=== PATIENT | female | born 1940 | race Caucasian/White ===

== ENCOUNTER → 2018-02-09 10:25 | Outpatient (CLI) | payer MEDICARE, OTHER, SELFPAY ==
--- NOTE | 2018-02-09 10:35 | RAD_ITS ---
STUDY: X-RAY - LUMBAR SPINE REASON FOR EXAM: Female, 77 years old. Back pain. TECHNIQUE: 5 view(s) of the lumbar spine were obtained. COMPARISON: None FINDINGS: Normal lumbar lordosis. There is no substantial scoliosis. There is a normal alignment of the vertebrae. Normal vertebral bodies and endplates. Mild disc space narrowing L1-L2 and L2-3. The soft tissue structures are unremarkable. Surgical clips right upper quadrant. RAD/L/S Spine Min 4 Views IMPRESSION: Minimal degenerative changes of the lumbar spine. Electronically Signed: Salvador Hernandez MD at 5:29 EDT , Service support ,
[2018-02-09 12:16] LABS: Absolute Lymphocyte Count 1.97 X10^3/ul (0.83-4.51); Absolute Neutrophil Count 6.6 X10^3/uL (2.0-7.7); Basophil# 0.04 X10^3/uL; Basophil% 0.4 % (0-1); Eosinophil# 0.11 X10^3/uL; Eosinophils% 1.2 % (0-5); Hematocrit 45.6 % (37-47); Hemoglobin 15.1 g/dl (12.0-15.0); Lymphocyte # 1.97 X10^3/ul (4.0); Lymphocyte % 20.8 % (19-41); Mean Corp Hgb Conc 33.1 g/gl (32-36); Mean Corpuscular Hgb 28.7 pg (27.0-32.0); Mean Corpuscular Volume 86.7 fL (81-99); Mean Platelet Vol. 10.4 fl (6.2-12.0); Monocyte# 0.73 X10^3/uL; Monocyte% 7.7 % (0-10); Neutrophil # 6.63 X10^3/uL (2.7-7.7); Neutrophil % 69.8 % (47-70); Platelet Count 208 K/mm3 (150-450); RBC Distribution Width CV 13.3 % (11.6-14.6); RBC Distribution Width SD 41.2 fl (35.1-43.9); Red Blood Count 5.26 M/mm3 (4.2-5.4); White Blood Count 9.5 K/mm3 (4.4-11.0)
[2018-02-09 12:17] LABS: POSITIVE COUNT NO; POSITIVE DIFFERENTIAL NO; POSITIVE MORPHOLOGY NO
[2018-02-09 12:46] LABS: ALB/GLOB Ratio 0.9 RATIO (0.9-2.4); AST(SGOT) 12 U/L (15-37); Alanine Aminotransfer ALT/SGPT 17 U/L (13-56); Albumin, Serum 3.6 g/dL (3.2-5.0); Alkaline Phosphatase 88 U/L (45-117); Anion Gap 10 (5-15); BUN 25 mg/dL (7-18); BUN/Creat Ratio 27.2 RATIO (10-20); Calcium,Total 8.7 mg/dL (8.5-10.1); Chloride 106 mmol/L (98-107); Creatinine, Serum 0.92 mg/dL (0.55-1.02); EST Glomerular Filtration Rate 63 mL/min (>60); Est Glom Filt Rate - Afr Amer 76 mL/min (>60); Globulin 3.8 g/dL (2.2-4.2); Glucose 84 mg/dL (74-106); Potassium 3.7 mmol/L (3.5-5.1); Protein, Total 7.4 g/dL (6.4-8.2); Sodium Level 142 mmol/L (136-145)
== END ==
PROVIDERS: Family Provider Internal Medicine; PCP Internal Medicine; Visit Provider Internal Medicine
DX: R03.0 Elevated blood-pressure reading, without diagnosis of hypertension (principal); M79.7 Fibromyalgia; M54.9 Dorsalgia, unspecified; G89.29 Other chronic pain
CPT/HCPCS: 36415; 72110; 80053; 85025

== ENCOUNTER 2018-02-23 08:31 | Emergency (ER) | payer MEDICARE, OTHER, SELFPAY ==
[2018-02-23 08:32] VITALS: BP 163/78; PULSE 74; RESP 16; TEMP 36.8; O2SAT 95; BMI 24.5
--- NOTE | 2018-02-23 09:06 | ED.DCSUM_ITS ---
- ER Visit Summary Date of Service: 02/23/18 Chief Complaint: Abdominal pain History of Present Illness: The patient is a 77 F who is had 1 week of abdominal pain. She describes cramping diffusely as well as some pains in her suprapubic area. She has had nausea without vomiting. Denies any urinary symptoms. She states she started out and but then has progressed to diarrhea. She thinks she may have had some blood with a bowel movement today. Of note, she did start a new blood pressure medication last week. Physical Examination: Vital signs reviewed. HEENT exam unremarkable. Heart is regular rate and rhythm without murmurs. Lungs are clear to auscultation. Abdomen is soft with tenderness in the lower abdomen area. Extremities reveal no edema. Skin exam normal. Neurologic exam normal. Test Results: Laboratory studies are unremarkable except for a white blood cell count of 14.4. Urinalysis shows trace blood. Acute abdominal series interpreted by myself reveals nonspecific bowel gas pattern Emergency Department Course and Treatment: Patient was given morphine and Zofran. She feels much better. Her pain is likely due to some constipation. I will give her MiraLAX that she can take at home. She will follow-up with her PCP Treatment Plan: [] Disposition: Discharge Impression: Constipation This note was generated with [employer] dictation software. It may contain incorrect words, spelling, and punctuation that were not noted in review of the chart prior to signing ED Disposition - Plan for ED Patient: Chief Complaint: Abd Pain Referrals: Codi Dias MD [Primary Care Provider] -
[2018-02-23 09:25] LABS: Absolute Lymphocyte Count 1.77 X10^3/ul (0.83-4.51); Absolute Neutrophil Count 11.6 X10^3/uL (2.0-7.7); Basophil# 0.01 X10^3/uL; Basophil% 0.1 % (0-1); Eosinophil# 0.09 X10^3/uL; Eosinophils% 0.6 % (0-5); Hematocrit 41.5 % (37-47); Hemoglobin 13.8 g/dl (12.0-15.0); Lymphocyte # 1.77 X10^3/ul (4.0); Lymphocyte % 12.3 % (19-41); Mean Corp Hgb Conc 33.3 g/gl (32-36); Mean Corpuscular Hgb 28.9 pg (27.0-32.0); Mean Platelet Vol. 9.4 fl (6.2-12.0); Monocyte# 0.83 X10^3/uL; Monocyte% 5.8 % (0-10); Neutrophil # 11.64 X10^3/uL (2.7-7.7); Neutrophil % 81.1 % (47-70); Platelet Count 154 K/mm3 (150-450); RBC Distribution Width CV 13.3 % (11.6-14.6); RBC Distribution Width SD 42.5 fl (35.1-43.9); Red Blood Count 4.77 M/mm3 (4.2-5.4); White Blood Count 14.4 K/mm3 (4.4-11.0)
[2018-02-23 09:26] LABS: POSITIVE COUNT NO; POSITIVE DIFFERENTIAL NO; POSITIVE MORPHOLOGY NO
[2018-02-23 09:42] LABS: ALB/GLOB Ratio 0.7 RATIO (0.9-2.4); AST(SGOT) 8 U/L (15-37); Alanine Aminotransfer ALT/SGPT 13 U/L (13-56); Albumin, Serum 2.8 g/dL (3.2-5.0); Alkaline Phosphatase 80 U/L (45-117); Anion Gap 6 (5-15); BUN 19 mg/dL (7-18); BUN/Creat Ratio 24.5 RATIO (10-20); Calcium,Total 8.5 mg/dL (8.5-10.1); Chloride 105 mmol/L (98-107); Creatinine, Serum 0.78 mg/dL (0.55-1.02); EST Glomerular Filtration Rate 76 mL/min (>60); Est Glom Filt Rate - Afr Amer 92 mL/min (>60); Globulin 3.8 g/dL (2.2-4.2); Glucose 103 mg/dL (74-106); Lipase 90 U/L (73-393); Potassium 3.7 mmol/L (3.5-5.1); Protein, Total 6.6 g/dL (6.4-8.2); Sodium Level 139 mmol/L (136-145)
[2018-02-23 09:46] LABS: Mucous, Urine 0 SEEN /hpf (<or=2+); Squamous Epithelial Cells - UA 0 SEEN /hpf (5-10); White Blood Cells 0 SEEN /hpf (0-5)
[2018-02-23 09:48] LABS: Color, Urine Yellow (Yellow); Glucose, Dipstick Normal (Normal); Ketone-Dipstick Negative (Negative); Leukocyte Esterase-Dipstick Negative /ul (Negative); Nitrite-Dipstick Negative (Negative); Occult Blood-Urine 25 /ul (Negative); Protein-Dipstick Negative (Negative); Urine Bilirubin Dipstick Negative (Negative); Urine Clarity Clear (Clear); Urine Urobilinogen Normal (Normal)
[2018-02-23 09:53] LABS: Bacteria RARE /hpf (None Seen); Red Blood Cells-Urine 0-5 SEEN /hpf (0-5)
[2018-02-23] MEDS: Morphine 4 MG/ML Syringe 2 MG IV (09:54)
[2018-02-23] MEDS: Ondansetron 4 MG/2 ML Vial IV (09:55)
--- NOTE | 2018-02-23 10:20 | RAD_ITS ---
STUDY: X-RAY - ACUTE ABDOMINAL SERIES REASON FOR EXAM: Female, 77 years old. PT HAS ONGOING ABD PAIN ALTERNATING BETWEEN CONSTIPATION AND DIARRHEA OVER LAST WEEK OR SO. BLOOD IN STOOL. PAIN IN LOWER ABD AREA. TECHNIQUE: Single view of the chest. Supine, erect, and decubitus view(s) of the abdomen were obtained. COMPARISON: None. FINDINGS: The lungs are clear and expanded. Normal size heart. Normal mediastinum and ashia. Normal visualized pulmonary arteries. There is atherosclerotic tortuosity of the aortic arch and descending thoracic aorta. There is a non-specific bowel gas pattern. The soft tissue structures of the abdomen and pelvis are unremarkable. There are diffuse degenerative changes of the visualized lumbar spine. RAD/Acute Abdomen Inc Chest IMPRESSION: No acute abnormality of the chest, abdomen, and pelvis. Electronically Signed: Raquel Yun MD at 11:27 EDT Tel , Service support ,
--- NOTE | 2018-02-23 11:22 | ED.DEP ---
ED Disposition - Plan for ED Patient: Disposition: Home or Assisted Living Chief Complaint: Abd Pain Instructions: ED Constipation Prescriptions: Polyethylene Glycol 3350 [Miralax] 17 gm PO DAILY #14 packet Referrals: Codi Dias MD [Primary Care Provider] -
[2018-02-23 12:11] VITALS: BP 148/75; PULSE 79; RESP 16; O2SAT 98
== END 2018-02-23 12:12 | disposition home or self-care (01) ==
PROVIDERS: Emergency Provider Emergency Medicine; Family Provider Internal Medicine; PCP Internal Medicine
DX: K59.00 Constipation, unspecified (principal); K58.9 Irritable bowel syndrome, unspecified; M79.7 Fibromyalgia; H91.90 Unspecified hearing loss, unspecified ear
CPT/HCPCS: 74022; 80053; 81001; 83690; 85025; 96374; 96375; 99285; J7030; A4216; J2405

== ENCOUNTER 2018-05-14 08:27 | Day surgery (SDC) | payer MEDICARE, OTHER, SELFPAY ==
[2018-05-14] VITALS (9 sets, daily range): BP systolic 129–177; BP diastolic 71–86; PULSE 58–74; RESP 16–18; TEMP 36.1–37; O2SAT 94–100; BMI 24.1
--- NOTE | 2018-05-14 11:16 | OP.PCM_ITS ---
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 She has not tolerated debridements in the office in the past due to severe vertigo and nausea, and debridement under anesthesia is offered as her impaction is quite severe. She and her daughter were eager to proceed. The risks, alternatives, potential benefits, and complications were discussed at length and any questions answered to the patient and/or caregiver's satisfaction. Witnessed informed consent was obtained in the office, and the patient and/or caregiver was agreeable to proceed. Procedure went as follows: The patient was identified in the preoperative holding brought to the operating room and was placed under general anesthesia and intubated. The operative ear had been site marked preoperatively in accordance with the office notes patient exam and history. The patient was then placed under monitored anesthesia care and the right ear prepped and draped in usual sterile fashion. There was densely packed cholesteatoma within the mastoid cavity. This was removed with a curved pick, alligator forceps, and #5 suction. No granulation tissue or purulence was noted and the tympanic membrane is intact. A similar procedure was then completed on the contralateral side with similar findings. The patient was then returned to anesthesia and was revived without complication having tolerated the procedure well. Type of Anesthesia:: MAC Anesthesiologist: Ramesh Hoffman Special Medications: none Specimen's removed: none Drains: none Estimated Blood Loss (mL): 0 mL Fluids Replaced: 700 mL Grafts/Implants Used: none - Complications none - Admit VTE Documentation VTE Present on Admission: No VTE Mechan Device Prophylaxis: SCD's VTE Pharm Prophylaxis ordered?: No
--- NOTE | 2018-05-14 11:18 | PCM.DC ---
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 (Chronic) You will use the following diet at home:: No restrictions Discharge Activity: Return to Normal Activity Call your doctor if your incision/area has: Foul Smelling Discharge Allergies/Adverse Reactions: Allergies amoxicillin Allergy (Severe, Verified 05/14/18 08:56) Itching penicillin G Allergy (Severe, Verified 05/14/18 08:56) Itching profaximin Allergy (Severe, Uncoded 04/27/18 08:59) Itching Medications to take at Discharge amlodipine 5 mg tablet 5 mg PO QDAY #90 tab 04/27/18 psyllium seed (sugar) oral powder 1 tsp PO QDAY 04/27/18 Fluticasone 0.05% [Flonase Nasal [place]] 2 spray NASAL DAILY 05/11/18 Primary Care Physician: Codi Dias MD [Primary Care Provider] - Test Results: Test results from this visit will be discussed in further detail at your follow-up appointment, if applicable. Please Follow Up With: Abdoul Wooten MD When: 2 weeks
--- NOTE | 2018-05-14 11:21 | DCINST_ITS ---
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 (Chronic) You will use the following diet at home:: No restrictions Discharge Activity: Return to Normal Activity Call your doctor if your incision/area has: Foul Smelling Discharge Allergies/Adverse Reactions: Allergies amoxicillin Allergy (Severe, Verified 05/14/18 08:56) Itching penicillin G Allergy (Severe, Verified 05/14/18 08:56) Itching profaximin Allergy (Severe, Uncoded 04/27/18 08:59) Itching Medications to take at Discharge amlodipine 5 mg tablet 5 mg PO QDAY #90 tab 04/27/18 psyllium seed (sugar) oral powder 1 tsp PO QDAY 04/27/18 Fluticasone 0.05% [Flonase Nasal [place]] 2 spray NASAL DAILY 05/11/18 Primary Care Physician: Codi Dias MD [Primary Care Provider] - Test Results: Test results from this visit will be discussed in further detail at your follow- up appointment, if applicable. Please Follow Up With: Abdoul Wooten MD When: 2 weeks
== END 2018-05-14 12:50 | disposition home or self-care (01) ==
LOC: SDC 08:28 → AC 08:29
PROVIDERS: Family Provider Internal Medicine; PCP Internal Medicine; Visit Provider Otolaryngology
PROC: (CPT 69222; principal; 2018-05-14 09:45)
DX: H95 Intraoperative and postprocedural complications and disorders of ear and mastoid process, not elsewhere classified (principal); H90.A21 Sensorineural hearing loss, unilateral, right ear, with restricted hearing on the contralateral side; I10 Essential (primary) hypertension; E07.9 Disorder of thyroid, unspecified; K21.9 Gastro-esophageal reflux disease without esophagitis; Z78.0 Asymptomatic menopausal state; Z79.899 Other long term (current) drug therapy
CPT/HCPCS: 00120; 69222; J7120

== ENCOUNTER → 2019-01-25 15:46 | Outpatient (CLI) | payer MEDICARE, OTHER, SELFPAY ==
[2018-12-21 10:43] VITALS: BMI 24.1
== END ==
LOC: LAB 15:49 → LABSPEC 15:50
PROVIDERS: Family Provider Internal Medicine; PCP Internal Medicine; Referring Provider Otolaryngology Otolaryngology/Facial Plastic Surgery; Visit Provider Otolaryngology Otolaryngology/Facial Plastic Surgery
DX: J32.9 Chronic sinusitis, unspecified (principal)
CPT/HCPCS: 87070; 87205

== ENCOUNTER → 2019-03-11 13:38 | Outpatient (CLI) | payer MEDICARE, OTHER, SELFPAY ==
[2018-12-21 10:43] VITALS: BMI 24.1
--- NOTE | 2019-03-11 13:44 | CT_ITS ---
STUDY: CT MAXILLOFACIAL SINUSES REASON FOR EXAM: Female, 78 years old. Sinusitis. RADIATION DOSAGE (If Supplied By Facility): CTDIvol = ( 33.45 ) mGy, DLP = ( 793.09 ) mGycm TECHNIQUE: The patient was scanned in a multi detector CT scanner. High resolution axial imaging was performed without the administration of intravenous contrast material. Sagittal and coronal images were reconstructed. Individualized dose optimization techniques were used for this CT. COMPARISON: None. FINDINGS: FRONTAL SINUSES: Normal aeration, without mucosal inflammatory disease. ETHMOIDAL SINUSES: Normal aeration, without mucosal inflammatory disease. MAXILLARY SINUSES: Mild mucosal thickening at the base of the left maxillary sinus without fluid retention periapical lucencies are noted in the juxtaposed left maxillary first molar. SPHENOIDAL SINUSES: Normal aeration, without mucosal inflammatory disease. There is patency of the bilateral maxillary infundibuli with normal uncinate processes, ethmoid bullae, and hiatus semilunaris. Partially paradoxical right middle turbinate. Hypoplasia of the left middle turbinate. Nodular mucosa of the inferior turbinates. 4 mm left nasal septal deviation and a moderate size left mid septal spur. There is patency of the bilateral nasal airways. Status post bilateral mastoidectomy and removal of most identified middle ears structures. The visualized bilateral orbital contents are normal. CT/Sinus/Facial Bone IMPRESSION: Mild mucosal thickening at the base of the left maxillary sinus which may be related to a periapical lucency of the root of the adjacent left maxillary first molar. Otherwise normal paranasal sinuses. Partially paradoxical right middle turbinate with hypoplasia of the left middle turbinate. Somewhat nodular mucosa of the inferior turbinates. 4 mm nasal septal deviation and a moderate-sized left mid septal spur. Bilateral mastoidectomy and removal of most of the middle ear structures bilaterally. Electronically Signed: Kary Ag MD at 0:04 EDT , Service support ,
== END ==
PROVIDERS: Family Provider Internal Medicine; PCP Internal Medicine; Referring Provider Otolaryngology Otolaryngology/Facial Plastic Surgery; Visit Provider Otolaryngology Otolaryngology/Facial Plastic Surgery
DX: J32.9 Chronic sinusitis, unspecified (principal)
CPT/HCPCS: 70486

== ENCOUNTER → 2019-06-24 14:44 | Outpatient (CLI) | payer MEDICARE, OTHER, SELFPAY ==
[2019-06-24 13:48] VITALS: BMI 29.2
--- NOTE | 2019-06-24 14:47 | RAD_ITS ---
STUDY: X-RAY - LUMBAR SPINE REASON FOR EXAM: Female, 78 years old. Low back pain. TECHNIQUE: 5 view(s) of the lumbar spine were obtained. COMPARISON: 5 views of the lumbar spine February 09, 2018. FINDINGS: Normal lumbar lordosis. There is no substantial scoliosis. There is stable borderline retrolisthesis of L2 on L3 and L3 on L4. There is stable multilevel anterior endplate spondylosis of the upper to mid lumbar vertebrae. Stable intervertebral disc narrowing at L2-3 and L3-4. There is no demonstrated obstructive lesion or acute fracture. There are stable hypertrophic degenerative arthroses of the L4-5 and L5-S1 facet joints. Degenerative changes also again seen in the inferior aspect of the bilateral sacroiliac joints. There is stable minor aortoiliac atherosclerotic calcification. RAD/L/S Spine Min 4 Views IMPRESSION: Stable multilevel changes of the spine since January 2018, as detailed above. Electronically Signed: Gagan Cantu MD at 18:55 EDT , Service support ,
== END ==
PROVIDERS: Family Provider Internal Medicine; PCP Internal Medicine; Referring Provider Internal Medicine; Visit Provider Internal Medicine
DX: M54.9 Dorsalgia, unspecified (principal); G89.29 Other chronic pain
CPT/HCPCS: 72110

== ENCOUNTER → 2021-10-14 | Outpatient (CLI) | payer MEDICARE, OTHER, SELFPAY | END | disposition home or self-care (01) | LOC: LABSPEC 14:50 | PROVIDERS: PCP Internal Medicine; Visit Provider Physician Assistant | DX: R11.10 Vomiting, unspecified (principal); R68.83 Chills (without fever) | CPT/HCPCS: 87635; U0005; U0003 ==

== ENCOUNTER → 2022-05-07 | Outpatient (CLI) | payer MEDICARE, OTHER, SELFPAY ==
[2022-05-07 12:27] LABS: Absolute Lymphocyte Count 1.89 X10^3/uL (0.83-4.51); Absolute Neutrophil Count 5.4 X10^3/uL (2.0-7.7); Basophil# 0.03 X10^3/uL; Basophil% 0.4 % (0-1); Eosinophil# 0.12 X10^3/uL; Eosinophils% 1.5 % (0-5); Hematocrit 43.3 % (37-47); Hemoglobin 14.2 g/dL (12.0-15.0); Lymphocyte # 1.89 X10^3/ul (0.83-4.51); Lymphocyte % 23.3 % (19-41); Mean Corp Hgb Conc 32.8 g/dL (32-36); Mean Corpuscular Hgb 28.9 pg (27.0-32.0); Mean Platelet Vol. 10.7 fl (6.2-12.0); Monocyte# 0.63 X10^3/uL; Monocyte% 7.8 % (0-10); NRBC Flagged by Analyzer 0 % (0-5); Neutrophil # 5.39 X10^3/uL (2.7-7.7); Neutrophil % 66.5 % (47-70); Platelet Count 102 K/mm3 (150-450); RBC Distribution Width CV 13.1 % (11.6-14.6); RBC Distribution Width SD 42.2 fl (35.1-43.9); Red Blood Count 4.92 M/mm3 (4.2-5.4); White Blood Count 8.1 K/mm3 (4.4-11.0)
[2022-05-07 13:04] LABS: AST(SGOT) 14 U/L (15-37); Alanine Aminotransfer ALT/SGPT 18 U/L (13-56); Albumin, Serum 3.4 g/dL (3.2-5.0); Alkaline Phosphatase 82 U/L (45-117); Anion Gap 3 (5-15); BUN 28 mg/dL (7-18); BUN/Creat Ratio 26.7 RATIO (10-20); Calcium,Total 9.3 mg/dL (8.5-10.1); Chloride 106 mmol/L (98-107); Cholesterol 191 mg/dL (200); Creatinine, Serum 1.05 mg/dL (0.55-1.02); EST Glomerular Filtration Rate 53 mL/min (>60); Est Glom Filt Rate - Afr Amer 64 mL/min (>60); Globulin 3.4 g/dL (2.2-4.2); Glucose 98 mg/dL (74-106); High Density Lipoprotein 57 mg/dL; Protein, Total 6.8 g/dL (6.4-8.2); Sodium Level 139 mmol/L (136-145); Triglycerides 101 mg/dL; Very Low Density Lipoprotein 20 mg/dL (5-40)
== END | disposition home or self-care (01) ==
LOC: BIMLAB 10:18
PROVIDERS: PCP Internal Medicine; Referring Provider Internal Medicine; Visit Provider Internal Medicine
DX: I10 Essential (primary) hypertension (principal)
CPT/HCPCS: 36415; 80053; 80061; 85025

== ENCOUNTER → 2022-07-23 | Outpatient (CLI) | payer MEDICARE, OTHER, SELFPAY ==
[2022-07-23 15:29] LABS: Anion Gap 6 (5-15); BUN 23 mg/dL (7-18); BUN/Creat Ratio 18.3 RATIO (10-20); Chloride 107 mmol/L (98-107); Creatinine, Serum 1.26 mg/dL (0.55-1.02); EST Glomerular Filtration Rate 43 mL/min (>60); Est Glom Filt Rate - Afr Amer 52 mL/min (>60); Glucose 111 mg/dL (74-106); Potassium 3.5 mmol/L (3.5-5.1); Sodium Level 141 mmol/L (136-145)
== END | disposition home or self-care (01) ==
LOC: BIMLAB 14:04
PROVIDERS: PCP Internal Medicine; Referring Provider Internal Medicine; Visit Provider Internal Medicine
DX: I10 Essential (primary) hypertension (principal)
CPT/HCPCS: 36415; 80048

== ENCOUNTER 2023-04-08 11:39 | Inpatient (IN) | payer MEDICARE, OTHER, SELFPAY ==
[2023-04-08] VITALS (11 sets, daily range): BP systolic 145–180; BP diastolic 73–86; PULSE 62–73; RESP 16–20; TEMP 36.4–37.1; O2SAT 94–98; BMI 24.7; BMI 22.4
--- NOTE | 2023-04-08 12:02 | CT_ITS ---
STUDY: CT HEAD STROKE PROTOCOL W/O CONTRAST INJECTION REASON FOR EXAM: Female, 82 years old. Neuro deficit, acute, stroke suspected RADIATION DOSAGE (If Supplied By Facility): CTDIvol = ( 44.9 ) mGy, DLP = ( 728.62 ) mGycm TECHNIQUE: Transaxial CT imaging of the brain was performed without administration of intravenous contrast material. Individualized dose optimization techniques were used for this CT. COMPARISON: No relevant priors. FINDINGS: Normal soft tissue structures. Normal calvarium. There is mild cerebral atrophy with widening of the extra-axial spaces and ventricular dilatation. There are areas of decreased attenuation within the white matter tracts of the supratentorial brain, consistent with microvascular disease changes. Normal basal ganglia and thalami. Normal brainstem. There is mild cerebellar atrophy. There is no intracranial hemorrhage. There are no findings of an acute ischemic infarction. Atherosclerotic calcification of the cavernous portions of internal carotid arteries and vertebral arteries bilaterally. Normal visualized paranasal sinuses. ASPECT score: 10 CT/STROKE Brain/Head without Cont IMPRESSION: Chronic involutional changes of the brain. N.B. : The above Results were Read Back by Bret Jose MD to Tim Ceja and understanding confirmed on 04/08/2023 13:18:34 (ET). Electronically Signed: Bret Jose MD at 13:19 EDT ,
--- NOTE | 2023-04-08 12:02 | EKG12_ITS ---
Test Reason : GENERAL Blood Pressure : / mmHG Vent. Rate : 073 BPM Atrial Rate : 073 BPM P-R Int : 164 ms QRS Dur : 092 ms QT Int : 392 ms P-R-T Axes : 076 -06 018 degrees QTc Int : 431 ms Sinus rhythm with occasional Premature ventricular complexes Possible Left atrial enlargement Nonspecific ST abnormality Abnormal ECG Confirmed by BROOKE HOWARD, TRENT ([id number]), story editor RODRIGO MAURICE ([id number]) on 04/10/2023 10:09:59 A M Referred By: Confirmed By:MITZY COX MD
--- NOTE | 2023-04-08 12:05 | EX.ED.DYSGE1 ---
HPI History of Present Illness Chief Complaint: Neuro S/Sx Informant: patient, family and PCP Narrative Narrative: Patient presents for gait disturbance and disorientation along with some trouble speaking earlier. The patient states she woke up yesterday morning with the symptoms, but did not disclosed anyone until this morning when she called her neighbor and asked her to take her to the hospital. Her neighbor is with her and states that she had very abnormal speech this morning and seemed disoriented, she was not making any sense and having difficulty saying words. She states her speech is much better at the current time as I am examining her. Patient states she has been wobbly, and her neighbor confirms that she was having trouble walking as they were going into the PCP office today where they were seen prior to being sent here. Patient states she has checked her blood pressure several times in the last 24 hours or more hours, it was as high as 160s systolic, and also down in the 130s systolic which is where it was at the office prior to coming here. She denies any pain anywhere, headache, numbness or weakness focally right now, or any other recent illness or fall/injury. She has been compliant with her medications which include blood pressure medications, and she was on some medications for anxiety that have been adjusted lately, but she states she has stopped taking those after discussing with her PCP. [facility] Medical History Bilateral lower extremity edema Chronic back pain Constipation Dermatitis Fibromyalgia GERD (gastroesophageal reflux disease) Hearing loss Herpes zoster History of cataract HTN (hypertension) Hypertension Hypopigmentation IBS (irritable bowel syndrome) Seasonal allergies Vitiligo Home Medications amlodipine 5 mg tablet 5 mg PO DAILY BP 04/08/23 [History Last Taken 04/08/23] meloxicam 7.5 mg tablet 7.5 mg PO DAILY OSTEOARTHRITIS 04/08/23 [History Last Taken 04/08/23] Allergy/AdvReac Type Severity Reaction Status Date / Time amoxicillin Allergy Severe Itching Verified 04/08/23 11:43 penicillin G Allergy Severe Itching Verified 04/08/23 11:43 ipratropium AdvReac Mild Other Verified 04/08/23 11:43 Family History Mother Breast cancer CVA (cerebral vascular accident) Sister Breast cancer Surgical History History of cholecystectomy History of hysterectomy History of mastoidectomy History of partial thyroidectomy Social History Smoking Status: Never smoker alcohol intake: never substance use type: does not use what type of physical activity do you participate in: walking frequency: 1-2 times per week ROS ROS ED Constitutional Constitutional ED: Denies chills or fever(s) Eyes Eyes: Denies change in vision or diplopia ENT ENT ED: Denies rhinorrhea or sore throat Cardiovascular Cardiovascular: Denies chest pain or palpitations Respiratory/Chest Respiratory/Chest: Denies cough or dyspnea Gastrointestinal Gastrointestinal: Denies abdominal pain, diarrhea, nausea or vomiting Genitourinary Genitourinary ED: Denies dysuria or hematuria Musculoskeletal Musculoskeletal: Denies back pain or neck pain Integumentary Denies abscess or rash Neurologic Neurologic: Reports as per HPI, abnormal gait and abnormal speech; Denies headache(s), paresthesias or weakness Psychiatric Psychiatric: Denies anxiety or suicidal thoughts EXAM Physical Exam Const Vital Signs: 04/08/23 11:40 04/08/23 12:02 04/08/23 12:02 Temperature 97.5 F L Temperature Source Temporal Pulse Rate 71 73 Respiratory Rate 18 16 Blood Pressure 145/74 H 178/75 H Blood Pressure Mean 97 109 Pulse Ox 97 94 Oxygen Delivery Method Room Air Room Air Room Air Positive well nourished and well developed General Appearance ED: well developed and NAD HEENT Reports moist mucous membranes normocephalic and atraumatic Eyes PERRL and EOMs intact bilaterally Neck full ROM and supple Resp normal respiratory effort and clear to auscultation bilaterally Cardio regular rate, regular rhythm and no murmurs GI non-tender and non-distended Auscultation: normoactive bowel sounds Palpation: soft Back/Spine no CVA tenderness General Back: other FROM Extremity normal to inspection General Extremety ED: Negative for edema, pulses abnormal or tenderness General Extremity: Negative for edema or pulses abnormal Neuro oriented x3, CN's II-XII intact bilaterally and no sensory deficits noted Neuro Narrative: Normal [id number]-[id number]-[id number] and qgmj-jq-rfcx bilaterally Sensorium / Orientation: awake and alert Motor Exam: strength 5/5 throughout Psych mental status grossly normal Skin no rashes or lesions noted and no wounds NIHSS NIHSS Initial: 1a Level of Consciousness: 0 1b LOC Questions (Score 2 if aphasic/stupor): 0 1c LOC Commands (Only score 1st attempt): 0 2 Best Gaze (If aphasic, use reflexive mvmts.): 0 3 Visual: 0 4 Facial Palsy: 0 5 Motor Arm Right (UN = amputation/fusion): 0 5 Motor Arm Left: 0 6 Motor Leg Right: 0 6 Motor Leg Left: 0 7 Limb ataxia (Only + if out of proportion): 0 8 Sensory (Aphasia/stupor=0 or 1, coma=2): 0 9 Best Language: 0 10 Dysarthria (mute, coma=2, intubated=UN): 0 11 Extinction and Inattention (only scored if +): 0 Total Score: 0 MDM MDM MDM Narrative Medical decision making narrative: Ring is for TIA versus stroke here, patient with disequilibrium and transient aphasia but without any abby vertigo symptoms, and some transient elevated blood pressures which we witnessed here as well. In my opinion elevated blood pressures from a different source would not cause her to necessarily have ataxia. She is not objectively ataxic here and her NIH is 0, her plain head CT is negative, we held off on vessel imaging since she will be admitted to get MRA/MRI during the inpatient observation, she is in a sinus rhythm, and is doing well on reevaluation. Labs noted. Chest x-ray 2 views unremarkable on my interpretation. History & Record Review Additional record(s) reviewed:: Prior outpatient record (Few records to eval) and Prior labs Lab Data Attestation: I reviewed the patient's lab results. Labs: Laboratory Results - last 24 hr 04/08/23 04/08/23 04/08/23 12:30 12:30 12:30 WBC 11.6 H RBC 5.35 Hgb 15.4 H Hct 46.8 MCV 87.5 MCH 28.8 MCHC 32.9 RDW Std Deviation 41.9 RDW Coeff of Mark 13.2 Plt Count 158 MPV 9.6 Immature Gran % (Auto) 0.500 Neut % (Auto) 76.0 H Lymph % (Auto) 16.2 L [place] % (Auto) 6.0 Eos % (Auto) 0.9 Baso % (Auto) 0.4 Absolute Neuts (auto) 8.8 H Absolute Lymphs (auto) 1.88 Nucleated RBC % 0 PT 13.0 INR 1.0 APTT 35.7 Sodium 140 Potassium 3.7 Chloride 107 Carbon Dioxide 28.0 Anion Gap 5 BUN 25 H Creatinine 1.04 H Estim Creat Clear Calc 39.16 Est GFR (MDRD) Af Amer 65 Est GFR (MDRD) Non-Af 54 L BUN/Creatinine Ratio 24.0 H Glucose 96 Calcium 9.1 Troponin I High Sens 13 Radiography Diagnostic Testing: Clinical Impression(s) from Imaging Studies Brain CT 04/08/23 12:02 IMPRESSION: Chronic involutional changes of the brain. N.B. : The above Results were Read Back by Bret Jose MD to Tim Ceja and understanding confirmed on 04/08/2023 13:18:34 (ET). Electronically Signed: Bret Jose MD at 13:19 EDT , ADDENDUM: 04/08/23 1326 IMPRESSION: Chronic involutional changes of the brain. N.B. : The above Results were Read Back by Bret Jose MD to Tim Ceja and understanding confirmed on 04/08/2023 13:18:34 (ET). Electronically Signed: Bret Jose MD at 13:19 EDT , Chest X-Ray 04/08/23 12:53 IMPRESSION: Hyperinflation. Mild scarring in the right middle lobe. Electronically Signed: Bret Jose MD at 13:07 EDT , My interpretation of the CT agrees with that of the radiologist. Rhythm Strip Rhythm Strip: Sinus Rhythm Rate: 73 Ectopy: PVC(s) EKG Initial EKG: Attestation: I personally reviewed and interpreted this EKG as follows: Interpretation: Sinus Rhythm and No Acute Injury Pattern Management Discussion w/another healthcare provider: Hospitalist and Radiologist Discharge Plan Triage Chief Complaint: Neuro S/Sx Other Complaint: Confusion General Illness ED Provider: Tim Ceja Dx/Rx/DC Orders Clinical Impression: Brain TIA, Dysequilibrium Prescriptions: No Action meloxicam 7.5 mg tablet 7.5 mg PO DAILY Label Comments: TAKE 1 TABLET BY MOUTH EVERY DAY NEEDED FOR OSTEOARTHRITIS PAIN amlodipine 5 mg tablet 5 mg PO DAILY Primary Care Provider: America Tyson Referrals: America Tyson DO [[facility]] - Disposition Disposition: Acute Care Hospital [facility] Stroke Documentation Questions Stroke Team Activated: No (timing > 24 hrs) IV Thrombolytic Administered: No (timing)
[2023-04-08 12:37] LABS: Absolute Lymphocyte Count 1.88 X10^3/uL (0.83-4.51); Absolute Neutrophil Count 8.8 X10^3/uL (2.0-7.7); Basophil# 0.05 X10^3/uL; Basophil% 0.4 % (0-1); Eosinophils% 0.9 % (0-5); Hematocrit 46.8 % (37-47); Hemoglobin 15.4 g/dL (12.0-15.0); Lymphocyte # 1.88 X10^3/ul (0.83-4.51); Lymphocyte % 16.2 % (19-41); Mean Corp Hgb Conc 32.9 g/dL (32-36); Mean Corpuscular Hgb 28.8 pg (27.0-32.0); Mean Corpuscular Volume 87.5 fL (81-99); Mean Platelet Vol. 9.6 fl (6.2-12.0); NRBC Flagged by Analyzer 0 % (0-5); Neutrophil # 8.83 X10^3/uL (2.7-7.7); Platelet Count 158 K/mm3 (150-450); RBC Distribution Width CV 13.2 % (11.6-14.6); RBC Distribution Width SD 41.9 fl (35.1-43.9); Red Blood Count 5.35 M/mm3 (4.2-5.4); White Blood Count 11.6 K/mm3 (4.4-11.0)
[2023-04-08 12:50] LABS: Partial Thromboplast Time 35.7 Seconds (24.1-36.2)
--- NOTE | 2023-04-08 12:53 | RAD_ITS ---
STUDY: X-RAY CHEST REASON FOR EXAM: Female, 82 years old. Mediastinal eval; stroke sx TECHNIQUE: AP and lateral views of the chest. COMPARISON: Comparison is made with prior study February 23, 2018. FINDINGS: EKG electrodes are seen. There is hyperinflation of the lungs consistent with chronic obstructive lung disease (COPD). Mild linear scarring in the right middle lobe. There is no demonstrated pleural abnormality. Normal size heart. Normal mediastinum and ashia. Normal visualized pulmonary arteries. There is atherosclerotic calcification of the aortic arch with tortuosity. There is demineralization of the osseous structures. Normal visualized ribs, clavicles, and shoulders. There is no demonstrated abnormality of the visualized soft tissue structures of the upper abdomen. RAD/Chest PA and Lateral IMPRESSION: Hyperinflation. Mild scarring in the right middle lobe. Electronically Signed: Bret Jose MD at 13:07 EDT ,
[2023-04-08 12:55] LABS: Anion Gap 5 (5-15); BUN 25 mg/dL (7-18); Calcium,Total 9.1 mg/dL (8.5-10.1); Chloride 107 mmol/L (98-107); Creatinine, Serum 1.04 mg/dL (0.55-1.02); EST Glomerular Filtration Rate 54 mL/min (>60); Est Glom Filt Rate - Afr Amer 65 mL/min (>60); Estimated Creatinine Clearance 39.16 ml/min; Glucose 96 mg/dL (74-106); Potassium 3.7 mmol/L (3.5-5.1); Sodium Level 140 mmol/L (136-145); Troponin-I HS 13 pg/mL (3.0-54.0)
--- NOTE | 2023-04-08 13:59 | NURSING ---
PCU OBS KITTOE TIA
--- NOTE | 2023-04-08 14:07 | MRI_ITS ---
STUDY: MRI BRAIN WITHOUT CONTRAST REASON FOR EXAM: Female, 82 years old. CVA TECHNIQUE: Standardized multiplanar fat and water weighted pulse sequences were obtained. COMPARISON: 04/08/2023 CT head FINDINGS: There is moderate cerebral atrophy with widening of the extra-axial spaces and ventricular dilatation. There are multiple white matter hyperintensities, distributed throughout the deep white matter tracts of the cerebral hemispheres, consistent with moderate chronic white matter ischemic changes. There is a focal 3 x 2 mm area increased signal within the left superior frontal cortex consistent with likely focal acute to subacute ischemia. Normal T2* images of the brain without demonstrated susceptibility artifact. There is no demonstrated hemosiderin stain. Normal bilateral basal ganglia. Normal thalami. There is no extra-axial fluid accumulation. Normal flow voids within the major intracranial circulation suggesting patency by spin echo criteria. Normal sella turcica, pituitary gland, infundibular stalk, optic chiasm and hypothalamus. Normal tectal plate and pineal gland. Normal midbrain, saige and medulla. Normal cerebellum. Normal basal cisterns. Normal bilateral temporal bones. Normal bilateral internal auditory canals. No demonstrated orbital abnormality, within the constraints of a routine brain study. Normal visualized paranasal sinuses. Normal calvarium and skull base. Normal visualized soft tissue structures. Normal visualized upper cervical spine. MRI/Brain without Contrast IMPRESSION: Left frontal cortex 3 x 2 mm acute to subacute region of ischemia with no evidence of large territorial ischemia. No evidence of acute intracranial bleed or mass. Senescent changes as above. Electronically Signed: Enrique Arias DO at 15:48 EDT ,
--- NOTE | 2023-04-08 14:11 | PCM.HP.STD ---
HPI - General General Date of Admission: 04/08/23 Date of Service: 04/08/23 Chief Complaint: CONFUSION HPI Narrative NEELAM QUEEN, is a 82 F with past medical history single for essential hypertension who apparently lives by herself presents with 2 day history of episodic confusion. Patient was apparently found by her neighbor on the day of her admission with some aphasia. Was brought to the emergency department her INH was 0. CT of the head obtained was unremarkable. Patient intermittent confusion apparently continued was in the ER decision was made to admit patient for subsequent inpatient evaluation [facility] Medical History Bilateral lower extremity edema Chronic back pain Constipation Dermatitis Fibromyalgia GERD (gastroesophageal reflux disease) Hearing loss Herpes zoster History of cataract HTN (hypertension) Hypertension Hypopigmentation IBS (irritable bowel syndrome) Seasonal allergies Vitiligo Home Medications amlodipine 5 mg tablet 5 mg PO DAILY BP 04/08/23 [History Last Taken 04/08/23] meloxicam 7.5 mg tablet 7.5 mg PO DAILY OSTEOARTHRITIS 04/08/23 [History Last Taken 04/08/23] Allergy/AdvReac Type Severity Reaction Status Date / Time amoxicillin Allergy Severe Itching Verified 04/08/23 11:43 penicillin G Allergy Severe Itching Verified 04/08/23 11:43 ipratropium AdvReac Mild Other Verified 04/08/23 11:43 Family History Mother Breast cancer CVA (cerebral vascular accident) Sister Breast cancer Surgical History History of cholecystectomy History of hysterectomy History of mastoidectomy History of partial thyroidectomy Social History Smoking Status: Never smoker alcohol intake: never substance use type: does not use what type of physical activity do you participate in: walking frequency: 1-2 times per week ROS ROS Narrative GENERAL: denies fever, chills, night sweats, weight loss, anorexia HEENT: denies headache, sinus congestion, or drainage, dysphagia RESPIRATORY: denies cough, sputum production, shortness of breath, dyspnea on exertion CARDIAC: denies chest pain, palpitations, orthopnea, PND GASTROINTESTINAL: denies abdominal pain, nausea, vomiting, melena, GENITOURINARY: denies dysuria, urgency, frequency, heamaturia EXTREMITY: denies swelling MUSCULOSKELETAL: denies current joint pain or tenderness NEUROLOGIC: denies focal numbness, weakness, tingling HEMATOLOGIC: denies easy bruising and/or hemorrhage INTEGUMENT: denies rashes PSYCHIATRIC: denies suicidal or homicidal ideation Vital Signs Vital Signs Vital Signs: 04/08/23 11:40 04/08/23 12:02 04/08/23 12:02 Temperature 97.5 F L Temperature Source Temporal Pulse Rate 71 73 Respiratory Rate 18 16 Blood Pressure 145/74 H 178/75 H Blood Pressure Mean 97 109 Pulse Ox 97 94 Oxygen Delivery Method Room Air Room Air Room Air 04/08/23 13:53 Temperature 98.7 F Temperature Source Temporal Pulse Rate 65 Respiratory Rate 20 H Blood Pressure 173/77 H Blood Pressure Mean 109 Pulse Ox 98 Oxygen Delivery Method Room Air Weight Weight: 71.7 kg Body Mass Index (BMI) 24.7 Physical Exam Narrative GENERAL: cooperative HEENT: Atraumatic; normocephalic EYES; Anicteric, Normal Conjunctiva NECK; supple, normal thyroid, RESPIRATORY: Diminished to auscultation CARDIOVASCULAR: Regular S1 S2, GI: soft, normoactive bowel sounds, : No Renal angle tenderness; EXTREMITIES: No edema, no clubbing, MUSCULOSKELETAL: no muscle wasting NEURO: Awake; no lateralizing signs. SKIN: No Rash PSYCH; Flat affect Results Lab / Micro Data Result Diagrams: 04/08/23 12:30 04/08/23 12:30 Labs: Laboratory Results - last 24 hr 04/08/23 12:30: WBC 11.6 H, RBC 5.35, Hgb 15.4 H, Hct 46.8, MCV 87.5, MCH 28.8, MCHC 32.9, RDW Std Deviation 41.9, RDW Coeff of Mark 13.2, Plt Count 158, MPV 9.6, Immature Gran % (Auto) 0.500, Neut % (Auto) 76.0 H, Lymph % (Auto) 16.2 L, [place] % (Auto) 6.0, Eos % (Auto) 0.9, Baso % (Auto) 0.4, Absolute Neuts (auto) 8.8 H, Absolute Lymphs (auto) 1.88, Nucleated RBC % 0 04/08/23 12:30: PT 13.0, INR 1.0, APTT 35.7 04/08/23 12:30: Sodium 140, Potassium 3.7, Chloride 107, Carbon Dioxide 28.0, Anion Gap 5, BUN 25 H, Creatinine 1.04 H, Estim Creat Clear Calc 39.16, Est GFR (MDRD) Af Amer 65, Est GFR (MDRD) Non-Af 54 L, BUN/Creatinine Ratio 24.0 H, Glucose 96, Calcium 9.1, Troponin I High Sens 13 Rhythm Strip Rhythm Strip: Sinus Rhythm Rate: 73 Ectopy: PVC(s) Radiology Impression Brain CT 04/08/23 12:02 IMPRESSION: Chronic involutional changes of the brain. N.B. : The above Results were Read Back by Bret Jose MD to Tim Ceja and understanding confirmed on 04/08/2023 13:18:34 (ET). Electronically Signed: Bret Jose MD at 13:19 EDT , ADDENDUM: 04/08/23 1326 IMPRESSION: Chronic involutional changes of the brain. N.B. : The above Results were Read Back by Bret Jose MD to Tim Ceja and understanding confirmed on 04/08/2023 13:18:34 (ET). Electronically Signed: Bret Jose MD at 13:19 EDT , Chest X-Ray 04/08/23 12:53 IMPRESSION: Hyperinflation. Mild scarring in the right middle lobe. Electronically Signed: Bret Jose MD at 13:07 EDT , Assessment & Plan Assessment/Plan (1) TGA (transient global amnesia): PLAN: Plan Patient is an 82-year-old female presented with episodic confusion 1. Transient global amnesia ? Patient has been admitted to monitored bed undergoing subsequent evaluation including MRI as well as CTA of the head and neck as part of work-up for possible stroke. Patient was started on antiplatelet therapy as well as statin therapy. Also ordered 2D echo and ordered every 4 neurochecks 2. Essential hypertension ? Did continue patient home medications 3. Dehydration ? Started on IV fluid, ordered BMP for a.m. 4. DVT prophylaxis - On enoxaparin Time spent in the patient's overall evaluation,decision-making process, review of diagnostic data, adjustment of management, discussion with other providers, nursing nursing and ancillary staff involved in patient's care documentation, 55 Minutes Charges/Coding Visit Charges Inpatient E&M: 78276 Init Hosp L2
--- NOTE | 2023-04-08 14:55 | CT_ITS ---
We are attempting to reach an attending provider to discuss findings. An addendum with communication details will be sent when the communication is complete. STUDY: CTA HEAD AND NECK WITH CONTRAST REASON FOR EXAM: Female, 82 years old. Neuro deficit, acute, stroke suspected RADIATION DOSAGE (If Supplied By Facility): CTDIvol = ( 13.86 ) mGy, DLP = ( 654.42 ) mGycm TECHNIQUE: CT angiography was performed with a multi-detector CT scanner. Data acquisition was obtained from the skull base through the vertex following intravenous administration of IV 100mL Isovue-370. MIP images were reconstructed from the axial data set. Post-processing of the angiographic images was performed, with multiplanar reformation and 3D reconstruction. Individualized dose optimization techniques were used for this CT. COMPARISON: No relevant priors. FINDINGS: Normal bilateral petrous carotid arteries. There is calcified plaque formation of the right cavernous carotid artery, without a cross-sectional luminal stenosis. There is calcified plaque formation of the left cavernous carotid artery, without a cross-sectional luminal stenosis. Normal right A1 segments of the anterior cerebral artery. Normal left A1 segments of the anterior cerebral artery. Normal intact anterior communicating artery (ACOM). Normal bilateral A2 segments of the anterior cerebral arteries. Normal right M1 and M2 segments of the middle cerebral arteries, with a normal M1 bifurcation. Normal left M1 and M2 segments of the middle cerebral arteries, with a normal M1 bifurcation. Normal right posterior communicating artery (PCOM). Normal left posterior communicating artery (PCOM). Normal bilateral vertebral arteries. Normal basilar artery with a normal basilar bifurcation. The visualized bilateral superior cerebellar (SCA) arteries are normal. Normal bilateral P1, P2 and visualized P3 segments of the posterior cerebral arteries. There is no demonstrated aneurysm of the solomon of [place]. Tiny hypodensities are seen in the right lobe of the thyroid gland. The left lobe of the thyroid gland is not seen and most likely has been surgically resected. AORTIC ARCH: There is atherosclerotic calcific plaque formation of the aortic arch and great vessels arising from the aortic arch, without a hemodynamically significant stenosis. There is a normal origin of the brachiocephalic, left common carotid, and left subclavian arteries. Normal origins of the brachiocephalic, left common carotid, and left subclavian arteries. RIGHT CAROTID ARTERIES: Normal right common carotid artery (CCA). Normal right common carotid bulb. There is mild atherosclerotic plaque formation of the origin of the right internal carotid artery with less than 50% cross sectional diameter stenosis. Normal visualized cervical portion of the right internal carotid artery. There is mild atherosclerotic plaque formation of the origin of the right external carotid artery with less than 50% cross sectional diameter stenosis. LEFT CAROTID ARTERIES: Normal left common carotid artery (CCA). Normal left common carotid bulb. There is moderate atherosclerotic plaque formation of the origin of the left internal carotid artery with an estimated stenosis of 50-69% stenosis. Normal visualized cervical portion of the left internal carotid artery. Normal origin of the left external carotid artery (ECA). VERTEBRAL ARTERIES: Normal bilateral vertebral arteries. CT/STROKE CTA Head AND Neck W/Con IMPRESSION: Atherosclerotic calcific plaques in origin of the right internal carotid artery causing less than 50% narrowing. Calcific plaques at the origin of the left internal carotid artery causing between 50 and 60% narrowing. Electronically Signed: Bret Jose MD at 15:24 EDT ,
--- NOTE | 2023-04-08 15:59 | ECHOD_ITS ---
Reason For Study: TIA/CVA Procedure This was a 2D Doppler, Color Flow transthoracic echocardiogram. Exam performed portable in patient room. Left Ventricle Normal LV size. The estimated ejection fraction is 65 %. Unable to assess diastolic dysfunction. No regional wall motion abnormalities noted. Right Ventricle Normal RV size. Normal systolic function. Atria Normal left atrium. Normal right atrium. No doppler evidence for ASD. Bubble contrast study negative for right to left interatrial shunt. Mitral Valve There is moderate mitral annular calcification. There is no mitral valve stenosis. Trivial mitral valve insufficiency. Tricuspid Valve There is no tricuspid stenosis. Trivial tricuspid valve insufficiency. Pulmonary artery systolic pressure is 40 mmHg. Aortic Valve Trisinus/trileaflet aortic valve. There is no aortic stenosis. Trivial aortic valve insufficiency. Pulmonic Valve There is no pulmonic valvular stenosis. No pulmonic valve insufficiency. Great Vessels Normal aortic root. Pericardium/Pleural No pericardial effusion. Medication Performed a rapid injection of agitated mix of 9 cc saline and 1cc air to assess for atrial septal defect. MMode/2D Measurements & Calculations LVIDd: 4.5 cm IVSd: 1.4 cm Ao root diam: 3.3 cm LVIDs: 3.1 cm LVPWd: 0.98 cm LA dimension: 3.6 cm RVDd: 3.3 cm FS: 32.5 % LAV(MOD-bp): 42.0 ml LVAd ap4: 21.0 cm2 SV(MOD-sp4): 31.0 ml LAV(MOD-bp) Indexed: 23.2 ml/m2 LVLd ap4: 6.1 cm LAV(MOD-sp2): 42.2 ml EDV(MOD-sp4): 59.4 ml LAV(MOD-sp4): 40.5 ml EDV(sp4-el): 61.2 ml LVAs ap4: 13.1 cm2 LVLs ap4: 5.0 cm ESV(MOD-sp4): 28.4 ml ESV(sp4-el): 29.3 ml EF(MOD-sp4): 52.2 % EF(sp4-el): 52.1 % SV(sp4-el): 31.9 ml LA A4 area: 15.4 cm2 RA A4 area: 13.1 cm2 Time Measurements MV dec time: 0.40 sec Doppler Measurements & Calculations MV E max roque: 46.6 cm/sec Lat Peak E' Roque: 5.1 cm/sec Med Peak E' Roque: 4.9 cm/sec MV A max roque: 95.4 cm/sec E/E' lat: 9.1 E/E' med: 9.5 MV E/A: 0.49 MV V2 max: 125.5 cm/sec MV P1/2t max roque: 67.3 cm/sec Ao V2 max: 104.3 cm/sec MV max P.3 mmHg MV P1/2t: 133.1 msec Ao max P.4 mmHg MV V2 mean: 56.9 cm/sec Ao V2 mean: 70.8 cm/sec MV mean P.6 mmHg MV dec slope: 148.1 cm/sec2 Ao mean P.3 mmHg MV V2 VTI: 27.4 cm MVA(P1/2t): 1.7 cm2 Ao V2 VTI: 22.0 cm AV (velocity ratio): 0.93 AI max roque: 427.9 cm/sec LV V1 max: 84.4 cm/sec MR max roque: 628.0 cm/sec AI max P.3 mmHg LV V1 max P.8 mmHg MR max P.7 mmHg LV V1 mean P.3 mmHg MR mean roque: 527.0 cm/sec AI dec slope: 204.2 cm/sec2 LV V1 mean: 53.6 cm/sec MR mean P.7 mmHg AI P1/2t: 613.8 msec LV V1 VTI: 20.4 cm MR VTI: 212.3 cm PA V2 max: 60.8 cm/sec TR max roque: 304.7 cm/sec PI dec slope: 115.2 cm/sec2 TR max P.1 mmHg ECHO/Echo Complete Interpretation Summary The estimated ejection fraction is 65 %. Unable to assess diastolic dysfunction. Trivial mitral valve insufficiency. Trivial aortic valve insufficiency. Ordering Physician: Ozzie Davalos Referring Physician: America Tyson M.D. Performed By: James Gamez RCS
[2023-04-08] MEDS: 0.9% Normal Saline 1,000 ML 100 ML IV (17:25)
[2023-04-08] MEDS: 0.9% Saline Lock 10 ML Syringe IV (17:26)
[2023-04-08] MEDS: Atorvastatin Calcium 80 MG Tablet 40 MG PO (21:26)
[2023-04-09] VITALS (10 sets, daily range): BP systolic 145–185; BP diastolic 61–81; PULSE 63–73; RESP 16; TEMP 36.2–36.8; O2SAT 94–100; BMI 22.4
[2023-04-09] MEDS: 0.9% Normal Saline 1,000 ML 100 ML IV (04:18)
[2023-04-09] MEDS: 0.9% Saline Lock 10 ML Syringe IV (04:19)
[2023-04-09 05:41] LABS: Absolute Lymphocyte Count 1.81 X10^3/uL (0.83-4.51); Absolute Neutrophil Count 7.5 X10^3/uL (2.0-7.7); Basophil# 0.04 X10^3/uL; Basophil% 0.4 % (0-1); Eosinophil# 0.11 X10^3/uL; Eosinophils% 1.1 % (0-5); Hematocrit 41.9 % (37-47); Hemoglobin 13.9 g/dL (12.0-15.0); Lymphocyte # 1.81 X10^3/ul (0.83-4.51); Lymphocyte % 17.9 % (19-41); Mean Corp Hgb Conc 33.2 g/dL (32-36); Mean Corpuscular Hgb 28.9 pg (27.0-32.0); Mean Corpuscular Volume 87.1 fL (81-99); Mean Platelet Vol. 9.7 fl (6.2-12.0); Monocyte% 5.9 % (0-10); NRBC Flagged by Analyzer 0 % (0-5); Neutrophil # 7.49 X10^3/uL (2.7-7.7); Neutrophil % 74.2 % (47-70); Platelet Count 134 K/mm3 (150-450); RBC Distribution Width CV 13.1 % (11.6-14.6); RBC Distribution Width SD 41.5 fl (35.1-43.9); Red Blood Count 4.81 M/mm3 (4.2-5.4); White Blood Count 10.1 K/mm3 (4.4-11.0)
[2023-04-09 06:27] LABS: Anion Gap 5 (5-15); BUN 19 mg/dL (7-18); BUN/Creat Ratio 21.3 RATIO (10-20); Calcium,Total 8.6 mg/dL (8.5-10.1); Chloride 111 mmol/L (98-107); Cholesterol 162 mg/dL (200); Creatinine, Serum 0.89 mg/dL (0.55-1.02); EST Glomerular Filtration Rate 64 mL/min (>60); Est Glom Filt Rate - Afr Amer 78 mL/min (>60); Estimated Creatinine Clearance 44.05 ml/min; Glucose 107 mg/dL (74-106); High Density Lipoprotein 53 mg/dL; Magnesium 2.2 mg/dL (1.6-2.6); Phosphorus 3.1 mg/dL (2.5-4.9); Potassium 3.6 mmol/L (3.5-5.1); Sodium Level 140 mmol/L (136-145); Thyroid Stim Hormone (TSH) 3.91 uIU/mL (0.358-3.74); Triglycerides 83 mg/dL; Very Low Density Lipoprotein 17 mg/dL (5-40)
[2023-04-09] MEDS: Meloxicam 7.5 MG Tablet PO (09:14)
[2023-04-09] MEDS: Aspirin 81 MG TAB.CHEW PO (09:14)
[2023-04-09] MEDS: amLODIPine 5 MG Tablet PO (09:14)
[2023-04-09] MEDS: Enoxaparin 40 MG/0.4 ML Syringe SC (09:14)
--- NOTE | 2023-04-09 09:26 | PCM.PN.HOSP ---
Reason for Visit Reason for Visit: Diagnoses Transient global amnesia (04/08/23) Subjective Subjective MRI obtained as part of patient's evaluation did show Left frontal cortex 3 x 2 mm acute to subacute region of ischemia. CTA of the head and neck did show Atherosclerotic calcific plaques in origin of the right internal carotid artery causing less than 50% narrowing. Calcific plaques at the origin of the left internal carotid artery causing between 50 and 60% narrowing. Consult placed to neurology as part of patient's evaluation Objective Data Objective Data Vital Signs: Vital Signs Temp Pulse Resp BP Pulse Ox O2 Del Method 97.2 F L 70 16 145/61 H 99 Room Air 04/09/23 07:55 04/09/23 07:55 04/09/23 07:55 04/09/23 07:55 04/09/23 07:55 04/09/23 07:55 Oxygen Delivery Method Room Air Weight: 64.7 kg Body Mass Index (BMI) 22.4 Intake & Output: Intake and Output for Last 24 Hours 04/07/23 04/08/23 04/09/23 23:59 23:59 23:59 Intake Total 220 / 220 1050 / 1050 Balance 220 / 220 1050 / 1050 Lab / Micro Data Result Diagrams: 04/09/23 05:22 04/09/23 05:22 Labs: Laboratory Results - last 24 hr 04/08/23 12:30: WBC 11.6 H, RBC 5.35, Hgb 15.4 H, Hct 46.8, MCV 87.5, MCH 28.8, MCHC 32.9, RDW Std Deviation 41.9, RDW Coeff of Mark 13.2, Plt Count 158, MPV 9.6, Immature Gran % (Auto) 0.500, Neut % (Auto) 76.0 H, Lymph % (Auto) 16.2 L, [place] % (Auto) 6.0, Eos % (Auto) 0.9, Baso % (Auto) 0.4, Absolute Neuts (auto) 8.8 H, Absolute Lymphs (auto) 1.88, Nucleated RBC % 0 04/08/23 12:30: PT 13.0, INR 1.0, APTT 35.7 04/08/23 12:30: Sodium 140, Potassium 3.7, Chloride 107, Carbon Dioxide 28.0, Anion Gap 5, BUN 25 H, Creatinine 1.04 H, Estim Creat Clear Calc 39.16, Est GFR (MDRD) Af Amer 65, Est GFR (MDRD) Non-Af 54 L, BUN/Creatinine Ratio 24.0 H, Glucose 96, Calcium 9.1, Troponin I High Sens 13 04/09/23 05:22: WBC 10.1, RBC 4.81, Hgb 13.9, Hct 41.9, MCV 87.1, MCH 28.9, MCHC 33.2, RDW Std Deviation 41.5, RDW Coeff of Mark 13.1, Plt Count 134 L, MPV 9.7, Immature Gran % (Auto) 0.500, Neut % (Auto) 74.2 H, Lymph % (Auto) 17.9 L, [place] % (Auto) 5.9, Eos % (Auto) 1.1, Baso % (Auto) 0.4, Absolute Neuts (auto) 7.5, Absolute Lymphs (auto) 1.81, Nucleated RBC % 0 04/09/23 05:22: Sodium 140, Potassium 3.6, Chloride 111 H, Carbon Dioxide 24.0, Anion Gap 5, BUN 19 H, Creatinine 0.89, Estim Creat Clear Calc 44.05, Est GFR (MDRD) Af Amer 78, Est GFR (MDRD) Non-Af 64, BUN/Creatinine Ratio 21.3 H, Glucose 107 H, Calcium 8.6, Phosphorus 3.1, Magnesium 2.2, Triglycerides 83, Cholesterol 162, LDL Cholesterol 92, VLDL Cholesterol 17, HDL Cholesterol 53, TSH 3.91 H Radiography Diagnostic Testing: Radiology Impression Brain CT 04/08/23 12:02 IMPRESSION: Chronic involutional changes of the brain. N.B. : The above Results were Read Back by Bret Jose MD to Tim Ceja and understanding confirmed on 04/08/2023 13:18:34 (ET). Electronically Signed: Bret Jose MD at 13:19 EDT , ADDENDUM: 04/08/23 1326 IMPRESSION: Chronic involutional changes of the brain. N.B. : The above Results were Read Back by Bret Jose MD to Tim Ceja and understanding confirmed on 04/08/2023 13:18:34 (ET). Electronically Signed: Bret Jose MD at 13:19 EDT , Chest X-Ray 04/08/23 12:53 IMPRESSION: Hyperinflation. Mild scarring in the right middle lobe. Electronically Signed: Bret Jose MD at 13:07 EDT , Brain MRI 04/08/23 14:07 IMPRESSION: Left frontal cortex 3 x 2 mm acute to subacute region of ischemia with no evidence of large territorial ischemia. No evidence of acute intracranial bleed or mass. Senescent changes as above. Electronically Signed: Enrique Arias DO at 15:48 EDT , Head/Neck CTA 04/08/23 14:55 IMPRESSION: Atherosclerotic calcific plaques in origin of the right internal carotid artery causing less than 50% narrowing. Calcific plaques at the origin of the left internal carotid artery causing between 50 and 60% narrowing. Electronically Signed: Bret Jose MD at 15:24 EDT , ADDENDUM: 04/08/23 1536 IMPRESSION: Atherosclerotic calcific plaques in origin of the right internal carotid artery causing less than 50% narrowing. Calcific plaques at the origin of the left internal carotid artery causing between 50 and 60% narrowing. N.B. : The above Results were Read Back by Bret Jose MD to Kashmir Townsend, DO, and understanding confirmed on 04/08/2023 15:29:56 (ET). Electronically Signed: Bret Jose MD at 15:24 EDT , Rhythm Strip Rhythm Strip: Sinus Rhythm Rate: 73 Ectopy: PVC(s) Physical Exam Narrative GENERAL: cooperative HEENT: Atraumatic; normocephalic EYES; Anicteric, Normal Conjunctiva NECK; supple, normal thyroid, RESPIRATORY: Diminished to auscultation CARDIOVASCULAR: Regular S1 S2, GI: soft, normoactive bowel sounds, : No Renal angle tenderness; EXTREMITIES: No edema, no clubbing, MUSCULOSKELETAL: no muscle wasting NEURO: Awake; no lateralizing signs. SKIN: No Rash PSYCH; Flat affect Assessment & Plan Assessment/Plan (1) TGA (transient global amnesia): PLAN: Plan Patient is an 82-year-old female presented with episodic confusion 1. Transient global amnesia ? Patient has been admitted to monitored bed undergoing subsequent evaluation including MRI as well as CTA of the head and neck as part of work-up for possible stroke. Patient was started on antiplatelet therapy as well as statin therapy. Also ordered 2D echo and ordered every 4 neurochecks -04/09/2022 MRI obtained as part of patient's evaluation did show Left frontal cortex 3 x 2 mm acute to subacute region of ischemia. CTA of the head and neck did show Atherosclerotic calcific plaques in origin of the right internal carotid artery causing less than 50% narrowing. Calcific plaques at the origin of the left internal carotid artery causing between 50 and 60% narrowing. Consult placed to neurology as part of patient's evaluation. Patient is on antiplatelet therapy as well as statin therapy ordered 2D echo pending 2. Essential hypertension ? Did continue patient home medications 3. Dehydration ? Started on IV fluid, ordered BMP for a.m. 4. DVT prophylaxis - On enoxaparin Time spent in the patient's overall evaluation,decision-making process, review of diagnostic data, adjustment of management, discussion with other providers, nursing nursing and ancillary staff involved in patient's care documentation, 50 Minutes Charges/Coding Visit Charges Inpatient E&M: 65905 Subs Hosp L3
--- NOTE | 2023-04-09 11:40 | CASEMGMT ---
RN CM Face to Face with patient for initial transition planning/care coordination assessment. RN CM introduced self and role at [facility]. Patient lying in bed, alert and oriented, very [place]. Patient willing to participate in assessment and is able to answer all questions appropriately. Care providers, pharmacy, and demographics verified. Patient wishes to discharge home, will monitor progress with therapy. Patient states he has no further needs or concerns at this time. CM to follow for discharge planning needs that may arise. PCP: Jah Specialists: None Preferred [facility]: [facility]: yes Living Will/HPOA: yes, daughter Minnie López LNOK: daughter Living Arrangements: Patient lives alone in a condo with no steps to enter. Patient states she is independent at home Transportation: self, daughter DME/HHC: Genevieve has shower chair, raised toilet, and grab bars at home. NO previous HHC or SNF. Will monitor progress with therapy, possible walker at discharge. Disposition Plan: TBD, anticipate HHC vs SNF pending progress with therapy. Myra MANRIQUEZ, RN, CM
--- NOTE | 2023-04-09 14:48 | CHAPLAIN ---
Type of Pastoral Visit _x__ Initial Visit ___ Follow-up Visit ___ On-call Visit ___ General Patient Visit ___ Spiritual Assessment ___ Family Conference ___ Bereavement ___ Rapid Response ___ Code Blue ___ Other (describe below) Pastoral Care Referral From _x__ Patient _x__ Family ___ Nurse ___ Physician ___ Paper Novelty Maker ___ Insole Beveler ___ Other (describe below) Sacrament/Intervention _x__ Active listening ___ Anointing ___ Advent ___ Bereavement ___ Communion ___ Ginette exploration ___ ___ Life review _x__ Prayer ___ Reconciliation ___ Sacrament of Sick _x__ Supportive presence ___ Wedding ___ Other (describe below) Pastoral Comments patient is awake and states I'm fine when asked; pt laughs and makes comments to which she laughs at herself; daughter has arrived from [place] and rolls her eyes making faces that pt is not acting normal; pt focuses on fact daughter moved away from [place] recently; pt also focuses on questions about differences between independent living and assisted living as daughter talks about future placement of pt; pt and daughter were recommended to focus on pt health for today and not the other items stressing the patient; this generation technologist recommends a pause in their discussion/argument to seek answers from prayer; both welcome this and become quiet; offer of support as needed given
[2023-04-09] MEDS: Atorvastatin Calcium 80 MG Tablet 40 MG PO (22:30)
[2023-04-10] VITALS (11 sets, daily range): BP systolic 142–181; BP diastolic 63–86; PULSE 60–73; RESP 12–18; TEMP 36.7–36.9; O2SAT 94–99; BMI 22.4
[2023-04-10] MEDS: cloNIDine HCl 0.1 MG Tablet PO (02:00)
--- NOTE | 2023-04-10 07:48 | PCM.PN.HOSP ---
Reason for Visit Reason for Visit: Diagnoses Transient global amnesia (04/09/23) Subjective Subjective Patient seen level of mentation improving. Plan is for patient to be discharged home with home PT Objective Data Objective Data Vital Signs: Vital Signs Temp Pulse Resp BP Pulse Ox O2 Del Method 98.4 F 60 16 146/75 H 94 Room Air 04/10/23 06:00 04/10/23 06:00 04/10/23 06:00 04/10/23 06:00 04/10/23 06:00 04/10/23 06:00 Oxygen Delivery Method Room Air Weight: 64.7 kg Body Mass Index (BMI) 22.4 Intake & Output: Intake and Output for Last 24 Hours 04/08/23 04/09/23 04/10/23 23:59 23:59 23:59 Intake Total 220 / 220 3370 / 3370 60 / 60 Balance 220 / 220 3370 / 3370 60 / 60 Lab / Micro Data Result Diagrams: 04/09/23 05:22 04/09/23 05:22 Radiography Diagnostic Testing: Radiology Impression Echocardiogram 04/08/23 15:59 Interpretation Summary The estimated ejection fraction is 65 %. Unable to assess diastolic dysfunction. Trivial mitral valve insufficiency. Trivial aortic valve insufficiency. Ordering Physician: Ozzie Davalos Referring Physician: America Tyson M.D. Performed By: James Gamez RCS Rhythm Strip Rhythm Strip: Sinus Rhythm Rate: 73 Ectopy: PVC(s) Physical Exam Narrative GENERAL: cooperative HEENT: Atraumatic; normocephalic EYES; Anicteric, Normal Conjunctiva NECK; supple, normal thyroid, RESPIRATORY: Diminished to auscultation CARDIOVASCULAR: Regular S1 S2, GI: soft, normoactive bowel sounds, : No Renal angle tenderness; EXTREMITIES: No edema, no clubbing, MUSCULOSKELETAL: no muscle wasting NEURO: Awake; no lateralizing signs. SKIN: No Rash PSYCH; Flat affect Assessment & Plan Assessment/Plan (1) TGA (transient global amnesia): PLAN: Plan Patient is an 82-year-old female presented with episodic confusion 1. Acute CVA ? Patient has been admitted to monitored bed undergoing subsequent evaluation including MRI as well as CTA of the head and neck as part of work-up for possible stroke. Patient was started on antiplatelet therapy as well as statin therapy. Also ordered 2D echo and ordered every 4 neurochecks -04/09/2022 MRI obtained as part of patient's evaluation did show Left frontal cortex 3 x 2 mm acute to subacute region of ischemia. CTA of the head and neck did show Atherosclerotic calcific plaques in origin of the right internal carotid artery causing less than 50% narrowing. Calcific plaques at the origin of the left internal carotid artery causing between 50 and 60% narrowing. Consult placed to neurology as part of patient's evaluation. Patient is on antiplatelet therapy as well as statin therapy ordered 2D echo pending 2. Essential hypertension ? Did continue patient home medications 3. Dehydration ? Started on IV fluid, ordered BMP for a.m. 4. DVT prophylaxis - On enoxaparin Time spent in the patient's overall evaluation,decision-making process, review of diagnostic data, adjustment of management, discussion with other providers, nursing nursing and ancillary staff involved in patient's care documentation, 50 Minutes Charges/Coding Visit Charges Inpatient E&M: 21325 Subs Hosp L2
[2023-04-10] MEDS: Aspirin 81 MG TAB.CHEW PO (09:12)
[2023-04-10] MEDS: amLODIPine 5 MG Tablet PO (09:12)
[2023-04-10] MEDS: Enoxaparin 40 MG/0.4 ML Syringe SC (09:12)
[2023-04-10] MEDS: Meloxicam 7.5 MG Tablet PO (11:24)
[2023-04-10] MEDS: Senna/Docusate Sodium 1 Tablet 2 TABLET PO (11:27)
[2023-04-10] MEDS: Acetaminophen 325 MG Tablet 650 MG PO (18:10)
[2023-04-10] MEDS: Mag Hydrox/Al Hydrox/Simeth 30 ML UDC PO (20:07)
[2023-04-10] MEDS: Atorvastatin Calcium 80 MG Tablet 40 MG PO (21:58)
[2023-04-11 03:54] VITALS: BP 168/64; PULSE 70; RESP 18; TEMP 36.9; O2SAT 95
[2023-04-11 04:20] VITALS: BMI 22.4
[2023-04-11] MEDS: Senna/Docusate Sodium 1 Tablet 2 TABLET PO ×2 (06:01→15:59)
--- NOTE | 2023-04-11 07:50 | PN.HOSP_ITS ---
Reason for Visit Reason for Visit: Diagnoses Transient global amnesia (04/09/23) Subjective Subjective Patient seen had a relatively uneventful night. Plan is for patient to be transferred to the inpatient rehab unit on 04/12/2023 Objective Data Objective Data Vital Signs: Vital Signs Temp Pulse Resp BP Pulse Ox O2 Del Method 98.5 F 70 18 168/64 H 95 Room Air 04/11/23 03:54 04/11/23 03:54 04/11/23 03:54 04/11/23 03:54 04/11/23 03:54 04/11/23 03:59 Oxygen Delivery Method Room Air Weight: 64.7 kg Body Mass Index (BMI) 22.4 Intake & Output: Intake and Output for Last 24 Hours 04/09/23 04/10/23 04/11/23 23:59 23:59 23:59 Intake Total 3370 / 3370 60 / 60 Balance 3370 / 3370 60 / 60 Lab / Micro Data Result Diagrams: 04/09/23 05:22 04/09/23 05:22 Rhythm Strip Rhythm Strip: Sinus Rhythm Rate: 73 Ectopy: PVC(s) Physical Exam Narrative GENERAL: cooperative HEENT: Atraumatic; normocephalic EYES; Anicteric, Normal Conjunctiva NECK; supple, normal thyroid, RESPIRATORY: Diminished to auscultation CARDIOVASCULAR: Regular S1 S2, GI: soft, normoactive bowel sounds, : No Renal angle tenderness; EXTREMITIES: No edema, no clubbing, MUSCULOSKELETAL: no muscle wasting NEURO: Awake; no lateralizing signs. SKIN: No Rash PSYCH; Flat affect Assessment & Plan Assessment/Plan (1) TGA (transient global amnesia): PLAN: Plan Patient is an 82-year-old female presented with episodic confusion 1. Acute CVA ? Patient has been admitted to monitored bed undergoing subsequent evaluation including MRI as well as CTA of the head and neck as part of work-up for possible stroke. Patient was started on antiplatelet therapy as well as statin therapy. Also ordered 2D echo and ordered every 4 neurochecks -04/09/2023 MRI obtained as part of patient's evaluation did show Left frontal cortex 3 x 2 mm acute to subacute region of ischemia. CTA of the head and neck did show Atherosclerotic calcific plaques in origin of the right internal [place] artery causing less than 50% narrowing. Calcific plaques at the origin of the left internal carotid artery causing between 50 and 60% narrowing. Consult placed to neurology as part of patient's evaluation. Patient is on antiplatelet therapy as well as statin therapy ordered 2D echo pending -04/11/2023atient seen had a relatively uneventful night. Plan is for patient to be transferred to the inpatient rehab unit on 04/12/2023 2. Essential hypertension ? Did continue patient home medications 3. Dehydration ? Started on IV fluid, ordered BMP for a.m. 4. DVT prophylaxis - On enoxaparin Time spent in the patient's overall evaluation,decision-making process, review of diagnostic data, adjustment of management, discussion with other providers, nursing nursing and ancillary staff involved in patient's care documentation, 50 Minutes Charges/Coding Visit Charges Inpatient E&M: 16598 Subs Hosp L2
[2023-04-11 10:16] VITALS: BP 140/66; PULSE 68; RESP 17; TEMP 36.7; O2SAT 97
[2023-04-11] MEDS: amLODIPine 5 MG Tablet PO (10:21)
[2023-04-11] MEDS: Aspirin 81 MG TAB.CHEW PO (10:23)
[2023-04-11] MEDS: Meloxicam 7.5 MG Tablet PO (10:23)
[2023-04-11] MEDS: Enoxaparin 40 MG/0.4 ML Syringe SC (10:24)
[2023-04-11 13:29] VITALS: BMI 22.4
[2023-04-11 15:43] VITALS: BP 146/73; PULSE 71; RESP 16; TEMP 36.7; O2SAT 96
[2023-04-11] MEDS: Mag Hydrox/Al Hydrox/Simeth 30 ML UDC PO (15:59)
[2023-04-11 19:34] VITALS: O2SAT 94
[2023-04-11 23:05] VITALS: BP 176/78; PULSE 71; RESP 18; TEMP 36.8; O2SAT 94
[2023-04-11] MEDS: Atorvastatin Calcium 80 MG Tablet 40 MG PO (23:09)
[2023-04-12] MEDS: amLODIPine 5 MG Tablet PO (00:35)
[2023-04-12 01:52] VITALS: BMI 22.4
[2023-04-12 03:27] VITALS: BP 174/70; PULSE 63; RESP 16; TEMP 37; O2SAT 96
[2023-04-12 03:30] VITALS: O2SAT 96
[2023-04-12 04:50] VITALS: BMI 22.4
--- NOTE | 2023-04-12 08:42 | DS.PCM_ITS ---
Providers Date of Admission: 04/09/23 Date of Discharge: 04/12/23 Primary Care Physician: Dr. America Tyson, DO Reason For Visit: AMS Diagnosis Discharge Diagnosis (1) TGA (transient global amnesia): Status: Acute Code(s): G45.4 - Transient global amnesia Plan Patient is an 82-year-old female presented with episodic confusion 1. Acute CVA ? Patient has been admitted to monitored bed undergoing subsequent evaluation including MRI as well as CTA of the head and neck as part of work-up for possibl e stroke. Patient was started on antiplatelet therapy as well as statin therapy. Also ordered 2D echo and ordered every 4 neurochecks -04/09/2023 MRI obtained as part of patient's evaluation did show Left frontal cortex 3 x 2 mm acute to subacute region of ischemia. CTA of the head and neck did show Atherosclerotic calcific plaques in origin of the right internal carotid artery causing less than 50% narrowing. Calcific plaques at the origin of the left internal carotid artery causing between 50 and 60% narrowing. Consult placed to neurology as part of patient's evaluation. Patient is on a ntiplatelet therapy as well as statin therapy ordered 2D echo pending -3patient seen had a relatively uneventful night. Plan is for patient to be transferred to the inpatient rehab unit on 04/12/2023 2. Essential hypertension ? Did continue patient home medications 3. Dehydration ? Started on IV fluid, ordered BMP for a.m. 4. DVT prophylaxis - On enoxaparin Time spent in the patient's overall evaluation,decision-making process, review of diagnostic data, adjustment of management, discussion with other providers, nursing nursing and ancillary staff involved in patient's care documentation, 50 Minutes Medications at Discharge Home Medications meloxicam 7.5 mg tablet 7.5 mg PO DAILY OSTEOARTHRITIS 04/08/23 acetaminophen 325 mg tablet 650 mg PO Q6H PRN PRN Pain 1-10 Or Fever>100.7 #0 tabs 04/12/23 aluminum-mag hydroxide-simethicone 400 mg-400 mg-40 mg/5 mL oral susp (Mag-Al Plus Extra Strength) 30 ml PO Q6H PRN PRN Gastric Burning #0 mL 04/12/23 amlodipine 10 mg tablet 10 mg PO DAILY #0 tabs 04/12/23 aspirin 81 mg chewable tablet 81 mg PO BREAKFAST #0 tabs 04/12/23 atorvastatin 80 mg tablet 40 mg PO QHS #0 tabs 04/12/23 melatonin 3 mg tablet 3 mg PO QHS PRN PRN Insomnia #0 tabs 04/12/23 sennosides 8.6 mg-docusate sodium 50 mg tablet (Stool Softener-Stimulant Laxative) 2 tab PO BID PRN PRN Constipation #0 tabs 04/12/23 Hospital Course Summary of Care Provided Minutes Spent on Discharge: 35 Physical Exam Narrative GENERAL: cooperative HEENT: Atraumatic; normocephalic EYES; Anicteric, Normal Conjunctiva NECK; supple, normal thyroid, RESPIRATORY: Diminished to auscultation CARDIOVASCULAR: Regular S1 S2, GI: soft, normoactive bowel sounds, : No Renal angle tenderness; EXTREMITIES: No edema, no clubbing, MUSCULOSKELETAL: no muscle wasting NEURO: Awake; no lateralizing signs. SKIN: No Rash PSYCH; Flat affect Weight / BMI Weight Weight: 64.7 kg Body Mass Index (BMI) 22.4 ABG / Lab / Microbiology Data Result Diagrams: 04/09/23 05:22 04/09/23 05:22 D/C Instructions Discharge Diet: No restrictions Discharge Activity: Return to Normal Activity Call your doctor if you observe: Fever of 101 or Higher, Shortness of breath, Fainting spells and Chest pain Meaningful Use Info Meaningful Use Diagnoses (Choose all that apply): Ischemic CVA CVA Therapy Assessed for PT,OT and/or ST?: Yes Ischemic Stroke Antithrombotic order at d/c?: Yes Dx of Atrial fib/flutter?: No Statins at discharge?: Yes Primary Dx Acute Ischemic CVA?: Yes IV thrombolytic ordered during stay?: No Reason IV thrombolytic not ordered: Treatment not Indicated Discharge Plan Admission Admit Date/Time: 04/09/23 09:25 Attending Provider: Ozzie Davalos Primary Care Provider: America Tyson Discharge Orders/Prescriptions Prescriptions: New atorvastatin 80 mg Tablet 40 mg PO QHS Qty: 0 0RF acetaminophen 325 mg Tablet 650 mg PO Q6H PRN PRN (Reason: Pain 1-10 Or Fever>100.7) Qty: 0 0RF sennosides-docusate sodium [Stool Softener-Stimulant Laxat] 8.6-50 mg Tablet 2 tab PO BID PRN PRN (Reason: Constipation) Qty: 0 0RF melatonin 3 mg Tablet 3 mg PO QHS PRN PRN (Reason: Insomnia) Qty: 0 0RF amlodipine 10 mg Tablet 10 mg PO DAILY Qty: 0 0RF aspirin 81 mg Tablet,Chewable 81 mg PO BREAKFAST Qty: 0 0RF alum-mag hydroxide-simeth [Mag-Al Plus Extra Strength] 400-400-40 mg/5 mL Suspension 30 ml PO Q6H PRN PRN (Reason: Gastric Burning) Qty: 0 0RF Continued meloxicam 7.5 mg tablet 7.5 mg PO DAILY Label Comments: TAKE 1 TABLET BY MOUTH EVERY DAY NEEDED FOR OSTEOARTHRITIS PAIN Discontinued amlodipine 5 mg tablet 5 mg PO DAILY Referrals / Follow Up: America Tyson DO [Primary Care Provider] - America Tyson DO [[facility]] - Disposition Disposition (needs filled in before D/C Order can be placed): Inpatient Rehab Unit/Facility Charges/Coding Visit Charges Inpatient E&M: 19314 Disch Hosp >30min
[2023-04-12 09:16] VITALS: BP 124/88; PULSE 84; RESP 16; TEMP 36.9; O2SAT 98
[2023-04-12] MEDS: Enoxaparin 40 MG/0.4 ML Syringe SC (09:20)
[2023-04-12] MEDS: Aspirin 81 MG TAB.CHEW PO (09:20)
[2023-04-12] MEDS: amLODIPine 10 MG Tablet PO (09:20)
[2023-04-12] MEDS: Meloxicam 7.5 MG Tablet PO (09:21)
[2023-04-12 09:43] VITALS: BMI 22.4
[2023-04-12 10:44] VITALS: BMI 22.4
--- NOTE | 2023-04-12 10:48 | NURSING ---
This RN taking over care of patient at this time.
== END 2023-04-12 11:51 | DRG 66 ==
LOC: ED 13:55 → PCU 14:13
PROVIDERS: Admitting Provider Internal Medicine; Emergency Provider Emergency Medicine; PCP Internal Medicine; Visit Provider Internal Medicine
DX: I63.9 Cerebral infarction, unspecified (principal); E86.0 Dehydration; F41.9 Anxiety disorder, unspecified; I10 Essential (primary) hypertension
CPT/HCPCS: 36415; 70450; 70496; 70498; 70551; 71046; 80048; 80061; 83735; 84100; 84443; 84484; 85025; 85610; 85730; 92523; 92610; 93005; 93306; 94762; 97110; 97116; 97162; 97166; 97530; 97535; 99285; J7030; Q9967; A4216

== ENCOUNTER 2023-04-12 12:07 | Inpatient (IN) | payer MEDICARE, OTHER, SELFPAY ==
[2023-04-12 12:23] VITALS: BP 110/43; PULSE 72; RESP 18; TEMP 36.7; O2SAT 98; BMI 22.7
[2023-04-12 19:03] VITALS: O2SAT 98
[2023-04-12 20:00] VITALS: BP 120/56; PULSE 64; RESP 17; TEMP 36.5; O2SAT 98
[2023-04-12 21:30] VITALS: PULSE 64; RESP 17; O2SAT 98
[2023-04-12] MEDS: Atorvastatin Calcium 40 MG Tablet PO (21:49)
[2023-04-12] MEDS: Senna/Docusate Sodium 1 Tablet 2 TABLET PO (21:49)
[2023-04-13 05:38] LABS: Hematocrit 40.4 % (37-47); Hemoglobin 13.1 g/dL (12.0-15.0); Mean Corp Hgb Conc 32.4 g/dL (32-36); Mean Corpuscular Hgb 28.4 pg (27.0-32.0); Mean Corpuscular Volume 87.6 fL (81-99); Mean Platelet Vol. 9.7 fl (6.2-12.0); Platelet Count 150 K/mm3 (150-450); RBC Distribution Width CV 13.4 % (11.6-14.6); RBC Distribution Width SD 42.7 fl (35.1-43.9); Red Blood Count 4.61 M/mm3 (4.2-5.4); White Blood Count 11.3 K/mm3 (4.4-11.0)
[2023-04-13] MEDS: Enoxaparin 40 MG/0.4 ML Syringe SC (05:50)
[2023-04-13 06:07] LABS: ALB/GLOB Ratio 0.8 RATIO (0.9-2.4); AST(SGOT) 14 U/L (15-37); Alanine Aminotransfer ALT/SGPT 23 U/L (13-56); Albumin, Serum 2.7 g/dL (3.2-5.0); Alkaline Phosphatase 73 U/L (45-117); Anion Gap 5 (5-15); BUN 34 mg/dL (7-18); BUN/Creat Ratio 30.9 RATIO (10-20); Calcium,Total 8.5 mg/dL (8.5-10.1); Chloride 108 mmol/L (98-107); EST Glomerular Filtration Rate 50 mL/min (>60); Est Glom Filt Rate - Afr Amer 61 mL/min (>60); Estimated Creatinine Clearance 35.64 ml/min; Globulin 3.2 g/dL (2.2-4.2); Glucose 101 mg/dL (74-106); Potassium 3.9 mmol/L (3.5-5.1); Protein, Total 5.9 g/dL (6.4-8.2); Sodium Level 140 mmol/L (136-145)
[2023-04-13 06:34] LABS: Magnesium 2.3 mg/dL (1.6-2.6); Phosphorus 3.8 mg/dL (2.5-4.9)
[2023-04-13 08:00] VITALS: BP 150/75; PULSE 67; RESP 18; TEMP 36.3; O2SAT 97
[2023-04-13] MEDS: amLODIPine 10 MG Tablet PO (08:57)
[2023-04-13] MEDS: Aspirin 81 MG TAB.CHEW PO (08:57)
[2023-04-13] MEDS: Meloxicam 7.5 MG Tablet PO (08:57)
[2023-04-13] MEDS: Senna/Docusate Sodium 1 Tablet 2 TABLET PO (08:58)
--- NOTE | 2023-04-13 09:49 | PCM.HP.STD ---
HPI - General General Date of Admission: 04/12/23 Date of Service: 04/13/23 Chief Complaint: Debility due to CVA. HPI Narrative TOMASA QUEEN, is a 82 YO F with a PMH of HTN, anxiety/depression, hearing loss and OA who presented to the ED at [facility] on 04/08/2023 complaining of a 2-day history of episodic confusion. A noncontrast CT brain was unremarkable. MRI showed a small ischemic CVA in the right frontal cortex. CTA of the head and neck showed calcific plaque at the origin of the right internal carotid artery causing less than 50% narrowing and calcific plaque at the origin of the left internal carotid artery causing between 50 and 60% narrowing. Echocardiogram showed a normal ejection fraction, no wall motion abnormalities, no significant valvular heart disease and no PFO. SOC teleneurology was consulted and recommended 81 mg of aspirin daily, Holter monitor, echocardiogram and outpatient neurology follow-up. She was seen by PT/OT/ST and was found to have gait instability (not explained by the frontal CVA), aphasia and confusion. She has been living by herself and was independent with all ADL's and driving. She was admitted to the acute inpt rehab unit at [facility] on 04/12/23 for 3 hours of therapy daily to restore function/independence at or near her level prior to the stroke. Afebrile VSS-blood pressure since arrival on rehab have ranged from 110/43 to 150/75. Pulse is within normal limits. Maintaining appropriate oxygen saturation on RA Oral intake is good Last bowel movement was 04/11/2023 Discussed with nursing - no problems that need addressed Reviewed the PT/OT/ST notes Medication list reviewed. She is currently on atorvastatin 40 mg daily and aspirin 81 mg daily for stroke. Her only antihypertensive is Norvasc 10 mg daily. All lab drawn this morning was personally reviewed. The white blood cell count is elevated at 11.3 and was elevated at admission to the hospital at 11.6. She has been afebrile. Her hemoglobin is 13.1, down from 15.4 at admission with hydration. Platelets are within normal limits. Sodium is 140 and the potassium is 3.9. BUN is elevated at 34 and the creatinine is 1.1 which is up from 1.04 at admission despite hydration. Phosphorus potassium and calcium are within normal limits. LFTs are unremarkable. Total cholesterol prior to the statin is 162 with an LDL of 92 and an HDL of 53. TS H is elevated at 3.91 and there was no T4 done. [facility] Medical History (Updated 04/16/23 @ 11:[address] Estefany Bingham DO) Chronic back pain Constipation Dermatitis Fibromyalgia GERD (gastroesophageal reflux disease) Hearing loss Herpes zoster History of cataract Hypertension IBS (irritable bowel syndrome) Seasonal allergies Vitiligo Home Medications meloxicam 7.5 mg tablet 7.5 mg PO DAILY OSTEOARTHRITIS 04/08/23 [History Last Taken 04/08/23] acetaminophen 325 mg tablet 650 mg PO Q6H PRN PRN Pain 1-10 Or Fever>100.7 #0 tabs 04/12/23 [Rx Last Taken Unknown] aluminum-mag hydroxide-simethicone 400 mg-400 mg-40 mg/5 mL oral susp (Mag-Al Plus Extra Strength) 30 ml PO Q6H PRN PRN Gastric Burning #0 mL 04/12/23 [Rx Last Taken Unknown] amlodipine 10 mg tablet 10 mg PO DAILY BP 04/12/23 [History Last Taken Unknown] aspirin 81 mg chewable tablet 81 mg PO BREAKFAST Heart health 04/12/23 [History Last Taken Unknown] atorvastatin 80 mg tablet 40 mg PO QHS Cholestrol 04/12/23 [History Last Taken Unknown] melatonin 3 mg tablet 3 mg PO QHS PRN PRN Insomnia #0 tabs 04/12/23 [Rx Last Taken Unknown] sennosides 8.6 mg-docusate sodium 50 mg tablet (Stool Softener-Stimulant Laxative) 2 tab PO BID PRN PRN Constipation #0 tabs 04/12/23 [Rx Last Taken Unknown] Allergy/AdvReac Type Severity Reaction Status Date / Time amoxicillin Allergy Severe Itching Verified 04/08/23 11:43 penicillin G Allergy Severe Itching Verified 04/08/23 11:43 ipratropium AdvReac Mild Other Verified 04/08/23 11:43 Family History Mother Breast cancer CVA (cerebral vascular accident) Sister Breast cancer Surgical History History of cholecystectomy History of hysterectomy History of mastoidectomy History of partial thyroidectomy Social History Smoking Status: Never smoker alcohol intake: never substance use type: does not use what type of physical activity do you participate in: walking frequency: 1-2 times per week ROS ROS Narrative Very limited by patient's inability to hear and having to repeat questions multiple times and she still does not know what I am asking. Constitutional Constitutional: Reports weakness; Denies change in weight or headache(s) Eyes Eyes: Denies blurry vision or eye pain ENT HEENT: Denies change in voice, ear pain, headache(s) or sore throat Cardiovascular Cardiovascular: Denies chest pain, lightheadedness or syncope Respiratory/Chest Respiratory/Chest: Denies cough or dyspnea Gastrointestinal Gastrointestinal: Denies abdominal pain, nausea or vomiting Genitourinary Genitourinary: Denies dysuria Musculoskeletal Musculoskeletal: Denies back pain or neck pain Neurologic Neurologic: Denies confusion, dizziness, focal weakness or headache(s) Psychiatric Psychiatric: Reports anxiety and other Details: I can not tell id she has memory loss or she just can not hear what is being said to her so she keeps repeating herself. ; Denies depression or suicidal thoughts Endocrine Endocrinology: Denies change in body appearance Hematologic/Lymphatic Hematologic/Lymphatic: Reports easy bleeding Allergic/Immunologic Allergic/Immunologic: Denies rhinitis or asthma Vital Signs Vital Signs Vital Signs: 04/12/23 12:23 04/12/23 19:03 04/12/23 20:00 Temperature 98.0 F 97.7 F L Temperature Source Temporal Temporal Pulse Rate 72 64 Pulse Strength Respiratory Rate 18 17 Respiratory Effort Respiratory Depth Respiratory Pattern Blood Pressure 110/43 L 120/56 L Blood Pressure Mean 65 77 Blood Pressure Source Monitor Monitor Blood Pressure Position Sitting Sitting Blood Pressure Location Right Arm Right Arm Pulse Ox 98 98 98 Oxygen Delivery Method Room Air Room Air Room Air 04/12/23 21:30 04/12/23 21:30 04/13/23 08:00 Temperature 97.3 F L Temperature Source Temporal Pulse Rate 64 67 Pulse Strength Normal (2+) Respiratory Rate 17 18 Respiratory Effort Normal Non-Labored Respiratory Depth Normal Respiratory Pattern Normal Blood Pressure 150/75 H Blood Pressure Mean 100 Blood Pressure Source Monitor Blood Pressure Position Sitting Blood Pressure Location Left Arm Pulse Ox 98 97 Oxygen Delivery Method Room Air Room Air Weight Weight: 145 lb 1.027 oz Body Mass Index (BMI) 22.7 Physical Exam Const alert, no apparent distress, average body habitus, healthy appearing and well nourished Constitutional Narrative: she was able to tell me the year and the month and who was the governor of [place]. General Appearance: cooperative and well kempt HEENT normocephalic, external nose normal and moist oral mucous membranes HEENT Narrative: EAC are occluded BL with cerumen. Head and Scalp: atraumatic Eyes PERRL and EOMs intact bilaterally Eyes Narrative: Has had BL cataract removal. Visual hdz are intact. General Eye: normal appearance of both eyes and normal light reflex Conjunctiva: conjunctiva normal and other Other Details: No scleral edema, no DC and no mattering of the eyelids. Sclera: sclera normal Neck supple, no JVD, No nodes and no carotid bruits Chest Chest: symmetrical chest wall rise Resp normal respiratory effort, normal air movement and clear to auscultation bilaterally Effort and Inspection: able to speak in complete sentences Cardio regular rate, regular rhythm, no murmurs, no rub and no gallops GI normal to inspection, nondistended, normoactive bowel sounds GI Narrative: No guarding with palpation. No masses and no hepatosplenomegaly. no CVA tenderness Extremity no calf tenderness and no pedal edema Extremity Narrative: No clubbing. She has joint enlargement of the MCP's and DIP's consistent with OA. No erythema and no significant increase in the warmth to touch. Some pain with palpation Skin no wounds and no jaundice Skin Narrative: She has patchy areas of depigmentation consistent with her diagnosis of vitiligo.....other family members have this also. General Skin Exam: no breakdown Neuro oriented x3, CN's II-XII intact bilaterally, moves all extremities, no focal motor deficits and no sensory deficits noted Neuro Narrative: I did not walk her but, I observed her ambulating with therapy and also observed stand and pivot and she had no LOB and was SBA/CGA. I think her major problem is generalized weakness due to hospital stay and inactivity. Visual hdz are intact. She is able to do finger-nose and heel abbasi with no difficulty. No extinction. Psych cooperative Psych Narrative: Seems anxious.....I suspect not being able to understand what is being said to her contributes to this. It is frustrating for her and the person trying to communicate with her. She refuses to get hearing aids because a friend told he if you have wax in your ear it corrodes the hearing aids. She tells me repeatedly that the last time she went to ENT then were not able to remove the wax. She tells me that she was put out to have hear ear wax removed by Dr. Abebe but she has been told that they can no longer do that and she perseverates on this. - Results Lab / Micro Data Result Diagrams: 04/13/23 05:30 04/13/23 05:30 Labs: Laboratory Results - last 24 hr 04/13/23 05:30: Sodium 140, Potassium 3.9, Chloride 108 H, Carbon Dioxide 27.0, Anion Gap 5, BUN 34 H, Creatinine 1.10 H, Estim Creat Clear Calc 35.64, Est GFR (MDRD) Af Amer 61, Est GFR (MDRD) Non-Af 50 L, BUN/Creatinine Ratio 30.9 H, Glucose 101, Calcium 8.5, Total Bilirubin 0.40, AST 14 L, ALT 23, Alkaline Phosphatase 73, Total Protein 5.9 L, Albumin 2.7 L, Globulin 3.2, Albumin/Globulin Ratio 0.8 L 04/13/23 05:30: WBC 11.3 H, RBC 4.61, Hgb 13.1, Hct 40.4, MCV 87.6, MCH 28.4, MCHC 32.4, RDW Std Deviation 42.7, RDW Coeff of Mark 13.4, Plt Count 150, MPV 9.7 04/13/23 05:30: Phosphorus 3.8, Magnesium 2.3 Assessment & Plan Assessment/Plan (1) Physical debility: (2) Ischemic cerebrovascular accident (CVA): (3) Brain TIA: (4) Dehydration: (5) TGA (transient global amnesia): (6) Generalized weakness: (7) Anxiety: (8) Elevated TSH: (9) Hypertension: (10) Venous insufficiency: (11) Vitiligo: (12) GERD (gastroesophageal reflux disease): (13) 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 Tyson following DC from [facility] Rehab AM lab including CMP, CBC, Mag and Phos - all personally reviewed. I had the opportunity to speak with her dtr prior to her flying back home. She is going to [place] for vacation in 2 weeks but, her sister will be able to stay with Tomasa if necessary. Ultimately Tomasa will move to [place] and live in an independent living situation close to her dtr. Will speak with the SW/ST to see is we can get an external amplifier to assist with communication. Amlodipine may be contributing to the ankle edema. will consider changing the antihypertensive.....possibly to Lisinopril. YUDITH zhang for now. Encourage her to increase her fluid intake. Charges/Coding Visit Charges Inpatient E&M: 29150 Init Hosp L3
[2023-04-13 19:45] VITALS: PULSE 68; RESP 18
[2023-04-13 19:47] VITALS: BP 122/60; PULSE 68; RESP 18; TEMP 36.8; O2SAT 97
[2023-04-13] MEDS: MELATONIN 3 MG TABLET PO (20:29)
[2023-04-13] MEDS: Atorvastatin Calcium 40 MG Tablet PO (20:29)
[2023-04-14] MEDS: Enoxaparin 40 MG/0.4 ML Syringe SC (05:14)
[2023-04-14 07:39] VITALS: BP 156/70; PULSE 68; RESP 16; TEMP 36.5; O2SAT 98
[2023-04-14] MEDS: amLODIPine 10 MG Tablet PO (08:10)
[2023-04-14] MEDS: Meloxicam 7.5 MG Tablet PO (08:10)
[2023-04-14] MEDS: Aspirin 81 MG TAB.CHEW PO (08:10)
[2023-04-14] MEDS: Senna/Docusate Sodium 1 Tablet 2 TABLET PO ×2 (08:10→21:05)
--- NOTE | 2023-04-14 16:01 | CHAPLAIN ---
Type of Pastoral Visit ___ Initial Visit _x__ Follow-up Visit ___ On-call Visit ___ General Patient Visit ___ Spiritual Assessment ___ Family Conference ___ Bereavement ___ Rapid Response ___ Code Blue ___ Other (describe below) Pastoral Care Referral From _x__ Patient ___ Family ___ Nurse ___ Physician ___ Center Sales And Service Associate ___ Chronograph Operator ___ Other (describe below) Sacrament/Intervention _x__ Active listening ___ Anointing ___ Evangelical ___ Bereavement ___ Communion ___ Ginette exploration ___ ___ Life review _x__ Prayer ___ Reconciliation ___ Sacrament of Sick _x__ Supportive presence ___ Wedding ___ Other (describe below) Pastoral Comments patient was seen in PCU previously; pt saw this phd internship and immediately began to talk and talk; pt spoke of her daughters and that their were away but maybe coming at some point; pt talked about her future living changes; pt talked about random things; this phd internship tried to change focus at times and talk but patient continued to talk and talk; a prayer was given to end visit; pt does not seek further help with needs
[2023-04-14 19:16] VITALS: BP 129/55; PULSE 69; RESP 14; TEMP 37; O2SAT 98
[2023-04-14] MEDS: Atorvastatin Calcium 40 MG Tablet PO (21:05)
[2023-04-14 21:16] VITALS: BMI 22.7
[2023-04-14 22:00] VITALS: PULSE 69; RESP 17; O2SAT 98
[2023-04-15] MEDS: Enoxaparin 40 MG/0.4 ML Syringe SC (05:47)
[2023-04-15] MEDS: Meloxicam 7.5 MG Tablet PO (07:52)
[2023-04-15] MEDS: Aspirin 81 MG TAB.CHEW PO (07:52)
[2023-04-15 08:02] VITALS: BP 159/83; PULSE 76; RESP 15; TEMP 36.7; O2SAT 96
[2023-04-15] MEDS: Senna/Docusate Sodium 1 Tablet 2 TABLET PO ×2 (09:01→20:14)
[2023-04-15] MEDS: amLODIPine 10 MG Tablet PO (09:01)
[2023-04-15 09:32] VITALS: RESP 16; O2SAT 98
[2023-04-15 15:34] VITALS: BMI 22.7
[2023-04-15] MEDS: Atorvastatin Calcium 40 MG Tablet PO (20:15)
[2023-04-15 20:16] VITALS: BP 121/61; PULSE 68; RESP 18; TEMP 36.9; O2SAT 98
[2023-04-15 22:00] VITALS: PULSE 68; RESP 16; O2SAT 98
[2023-04-15 22:43] VITALS: BMI 22.7
[2023-04-16] MEDS: Enoxaparin 40 MG/0.4 ML Syringe SC (06:37)
[2023-04-16 07:35] VITALS: BP 142/78; PULSE 77; RESP 17; TEMP 36.7; O2SAT 96
[2023-04-16] MEDS: Senna/Docusate Sodium 1 Tablet 2 TABLET PO (07:52)
[2023-04-16] MEDS: amLODIPine 10 MG Tablet PO (07:52)
[2023-04-16] MEDS: Meloxicam 7.5 MG Tablet PO (07:52)
[2023-04-16] MEDS: Aspirin 81 MG TAB.CHEW PO (07:52)
[2023-04-16 09:16] VITALS: BMI 22.7
[2023-04-16 10:55] VITALS: O2SAT 96
--- NOTE | 2023-04-16 11:09 | REHABEVAL_ITS ---
Admission Information Primary Diagnosis:: R frontal ischemic CVA. Status Changes from Prescreening?: No changes Identified Actual Problem List:: Cognitve Impr/Memory Loss, Alteration in Sleep, Mobility Impaired, Self Care Deficit, Ineffective Communication, Fluid Change-Dehydration and Alteration-Leisure Activ. Potential Problem List:: DVT, Bleeding, Infection, UTI, Aspiration, Falls, Skin Integrity and Depression Risk of Complications DVT: LMWH and YUDITH Hose Bleeding: Monitor Lab Values, Nursing to Teach Precautions for anti-coagulation therapy., Wound, if applicable, to be assessed every shift. and Stroke patients assessed for lethargy or change in status. Infection: Clinical Staff to Monitor for S/S of infection: and S/S of infection include fever, redness, warmth, etc. Urinary Tract Infection: Monitor for frequency, burning, discomfort, or incontinence. and Nursing will obtain urine sample for urinalysis and C&S when ordered. Aspiration: Clinical staff will monitor for coughing, drooling, congestion., Speech will evaluate swallowing and dsyphasia. and Nursing will monitor patient swallowing during meals. Falls: Patient will be evaluated for Fall Precautions and Patient will be placed on Fall Precautions as indicated per protocol. Skin Breakdown: Nursing will assess skin daily using assessment tool. and Nursing will place on Skin Breakdown Precautions as indicated. Pain: Clinical staff will assess patient's pain level per protocol., Medications will be given, if needed, and the pain level reassessed. and Other methods: Massage, distraction, decrease stimulus, etc. used PRN. Plan of Care Patient requires physician specializing in physical medicine and rehab oversight to provide close medical supervision of rehab issues including: Pain Management, Sleep Problems, Bowel and Bladder, Medical and co-morbidity Management, DVT prophylaxis, Rehabilitation Leadership and Coordination of treatment team Patient needs Physical Therapy: For a minimum of 1 hour and At least 5 out of 7 days Patient needs Physical Therapy to improve:: Mobility, Strengthening, Transfers, Stretching, ROM, Endurance, Stairs, Gait and Balance Patient needs Occupational Therapy: For a minimum of 1 hour and At least 5 out of 7 days Patient needs Occupational Therapy to improve ADL's incl.: Eating, Grooming, Ba thing, Dressing, Toileting, Toilet transfers, Community Reintegration, Higher functioning activities, Household tasks, Adaptive Equipment, Splinting and Other activities as determined Patient requires speech therapy: For a minimum of 1 hour and At least 5 out of 7 days Patient requires speech therapy for: Swallowing, Cognition, Language Skills and Compensatory Strategies Patient requires 24/ Rehabilitation Nursing for: Pain Issues, Identifying and preventing risk factors, Monitoring and reporting current medical conditions, Assisting with ambulation, transfer, and all ADL's, Teaching patients about disease process and medications, Family teaching, Providing safe environment, Bowel and Bladder Issues, Skin integrity and Medication Management Patient needs Umbrella Supervisor/ Case Management for: Discharge Planning, Arranging Home Equipment or Services and Family Interventions Patient needs Dietary and Nutrition Services for: Adequate Nutrition, Nutritional Supplements and Nutritional Education Goals Patient will remain: free from falls and or injury at time of discharge. Patient will perform bed mobility at: MOD I level of assist. Patient will complete transfers from bed to chair at: MOD I level of assist. Patient will ambulate: with LRD and - (350 with LRD) Patient will complete upper body dressing at: MOD I level of assist. Patient will complete lower body dressing at: MOD I level of assist. Patient will complete toileting at: MOD I level of assist. Patient will perform bathing at: MOD I level of assist. Patient will complete grooming at: MOD I level of assist. Patient will complete home management skills at: MOD I level of assist. Patient will achieve: - (1 curb step and 1 flight of stairs with 1 HR at SBA to allow access to the basement) Patient will have pain level of: of 3 or less Patient's skin will: remain intact Patient will receive: adequate nutrition. Discharge Planning Pt Prognosis for Sig. Practical Improv. w/in Reasonable Time: Good Estimated Length of stay (days): 14 Anticipated D/C Destination: Home (one of her dtr's will be with her initially)
--- NOTE | 2023-04-16 11:22 | PCM.PROGNOTE ---
Subjective Subjective Tomasa was seen on TEAM rounds today. Her daughters Minnie and Jaqueline participated by phone. Afebrile VSS Maintaining appropriate oxygen saturation on RA Oral intake is good for both nutrition and fluids. Discussed with nursing - no problems that need addressed Reviewed the PT/OT/ST notes Medication list reviewed. It is much easier to communicate with her with the external hearing device/amplifier. Tomasa denies chest pain, cephalgia, shortness of breath, cough, palpitations, lightheadedness, nausea/vomiting/abdominal pain, dysuria and calf tenderness. She has not complained about back pain and has not taken anything for pain, including Tylenol, since admission to rehab. She is getting stronger and walking without an assistive device this morning. Objective Data Objective Data Vital Signs: Vital Signs Temp Pulse Resp BP Pulse Ox O2 Del Method 98.1 F 77 17 142/78 H 96 Room Air 04/16/23 07:35 04/16/23 07:35 04/16/23 07:35 04/16/23 07:35 04/16/23 07:35 04/16/23 07:35 Oxygen Delivery Method Room Air Weight: 145 lb 1.027 oz Body Mass Index (BMI) 22.7 Intake & Output: Intake and Output for Last 24 Hours 04/14/23 04/15/23 04/16/23 23:59 23:59 23:59 Intake Total 1540 / 1540 1439 / 1559 920 / 920 Output Total 700 / 700 1225 / 1625 1000 / 1000 Balance 840 / 840 214 / -66 -80 / -80 Lab / Micro Data Result Diagrams: 04/13/23 05:30 04/13/23 05:30 Physical Exam Const alert, no apparent distress and healthy appearing General Appearance: cooperative HEENT normocephalic and moist oral mucous membranes Eyes Eyes Narrative: Has had BL cataract removal. Visual hdz are intact. Neck supple Resp normal respiratory effort, normal air movement and clear to auscultation bilaterally Effort and Inspection: able to speak in complete sentences Cardio regular rate, regular rhythm, no murmurs, no rub and no gallops GI normal to inspection, nondistended, normoactive bowel sounds GI Narrative: No guarding with palpation. No masses and no hepatosplenomegaly. no CVA tenderness Extremity no calf tenderness and no pedal edema Extremity Narrative: No clubbing. She has joint enlargement of the MCP's and DIP's consistent with OA. No erythema and no significant increase in the warmth to touch. Some pain with palpation Skin no wounds and no jaundice Skin Narrative: She has patchy areas of depigmentation consistent with her diagnosis of vitiligo.....other family members have this also. General Skin Exam: no breakdown Psych cooperative Assessment & Plan Assessment/Plan (1) Physical debility: (2) Ischemic cerebrovascular accident (CVA): (3) Brain TIA: (4) Dehydration: (5) TGA (transient global amnesia): (6) Generalized weakness: (7) Anxiety: (8) Elevated TSH: (9) Hypertension: (10) Venous insufficiency: (11) Hearing loss: PLAN: Plan 1. doing well in therapy and is very motivated to get home. will continue therapy. 2. She has no peripheral edema with the YUDITH hose in place so I continued the Amlodipine. AM sys BP is a little high.......no need to change things at this time......will defer to Dr. Tyson to tx. I suspect she is anxious when getting up in the AM because she is not in her home and she is on a different routine than she has at home 3. suggest to family that if the patient is resistant to getting hearing aids that the external amplifier can be purchased on [employer] for a lot less than hearing aids and she is not resistant to wearing the amplifier. 4. 30 day event monitor at discharge to look for AF. 5. DC is planned for 04/25/23 and Jaqueline will be staying with her for 2 weeks. Charges/Coding Visit Charges Inpatient E&M: 07094 Subs Hosp L2
--- NOTE | 2023-04-16 12:47 | CASEMGMT ---
Social Work IDT met with patient and two daughters via conference call for Team meeting. Discussed patient's progress in PT/OT/ST/SN. Educated to Medicare approval of 13 days with DC 04/25. IDT recommending pt can DC home with initial assistance. DtrJaqueline, plans to be in town with pt at DC for about two weeks and requesting skilled HHC. SW to assist with DC plans. Will ReTeam. Josseline Forde, GLAZE GRINDER NURSE CARE MANAGER
[2023-04-16] MEDS: Mag Hydrox/Al Hydrox/Simeth 30 ML UDC PO (14:15)
[2023-04-16 19:00] VITALS: BP 126/64; PULSE 72; RESP 16; TEMP 36.6; O2SAT 97
[2023-04-16 20:08] VITALS: BMI 22.7
[2023-04-16] MEDS: Atorvastatin Calcium 40 MG Tablet PO (20:10)
[2023-04-16 22:00] VITALS: PULSE 72; RESP 17; O2SAT 97
[2023-04-17] MEDS: Enoxaparin 40 MG/0.4 ML Syringe SC (05:53)
[2023-04-17 06:00] VITALS: BMI 23.2
[2023-04-17 07:31] VITALS: BP 132/66; PULSE 68; RESP 16; TEMP 36.8; O2SAT 95
[2023-04-17] MEDS: Meloxicam 7.5 MG Tablet PO (08:04)
[2023-04-17] MEDS: amLODIPine 10 MG Tablet PO (08:04)
[2023-04-17] MEDS: Aspirin 81 MG TAB.CHEW PO (08:04)
[2023-04-17 10:40] VITALS: BMI 23.2
[2023-04-17 15:40] VITALS: O2SAT 94
--- NOTE | 2023-04-17 15:56 | PCM.PROGNOTE ---
Subjective Subjective Afebrile VSS Maintaining appropriate oxygen saturation on RA Oral intake is good Discussed with nursing - no problems that need addressed Reviewed the PT/OT/ST notes Medication list reviewed. I think the external amplifier has changed her life......she is talking to everyone now and paying attention when they answer her. She is tell a lot of stories. I was talking with her while she was making a grilled cheese sandwich and she was able to multitask and continue making the sandwich while talking with me and even turning her head to look at me. She is ambulating without a device at a good pace with no LOB. She denies headache, chest pain, shortness of breath, cough, nausea/vomiting/abdominal pain, dysuria, lightheadedness and calf tenderness. She has no pain. Objective Data Objective Data Vital Signs: Vital Signs Temp Pulse Resp BP Pulse Ox O2 Del Method 98.3 F 68 16 132/66 H 94 Room Air 04/17/23 07:31 04/17/23 07:31 04/17/23 07:31 04/17/23 07:31 04/17/23 15:40 04/17/23 15:40 Oxygen Delivery Method Room Air Weight: 147 lb 14.883 oz Body Mass Index (BMI) 23.2 Intake & Output: Intake and Output for Last 24 Hours 04/15/23 04/16/23 04/17/23 23:59 23:59 23:59 Intake Total 1439 / 1559 1740 / 1740 1100 / 1100 Output Total 1225 / 1625 1000 / 1000 750 / 750 Balance 214 / -66 740 / 740 350 / 350 Lab / Micro Data Result Diagrams: 04/13/23 05:30 04/13/23 05:30 Physical Exam Const alert and oriented x3 General Appearance: cooperative HEENT moist oral mucous membranes Resp normal respiratory effort and clear to auscultation bilaterally Effort and Inspection: Negative for tachypneic Cardio regular rate, regular rhythm, no murmurs and no gallops GI normal to inspection, nondistended, normoactive bowel sounds, soft to palpation and non-tender GI Narrative: no guarding with palpation Extremity no calf tenderness General Extremity: Negative for edema Skin General Skin Exam: no breakdown Rashes: no rashes Psych Psych Narrative: Not as flat, she is not looking frustrated and she seems to be thriving with social interactions. She is smiling and talking a lot. Assessment & Plan Assessment/Plan (1) Physical debility: (2) Ischemic cerebrovascular accident (CVA): (3) Brain TIA: (4) Dehydration: (5) TGA (transient global amnesia): (6) Generalized weakness: (7) Anxiety: (8) Elevated TSH: (9) Hypertension: (10) Venous insufficiency: (11) Hearing loss: PLAN: Plan 1. Continue therapy Charges/Coding Visit Charges Inpatient E&M: 32230 Subs Hosp L2
[2023-04-17 19:10] VITALS: BP 134/62; PULSE 74; RESP 16; TEMP 35.9; O2SAT 95
[2023-04-17] MEDS: Senna/Docusate Sodium 1 Tablet 2 TABLET PO (20:49)
[2023-04-17] MEDS: Acetaminophen 325 MG Tablet 650 MG PO (20:50)
[2023-04-17] MEDS: Atorvastatin Calcium 40 MG Tablet PO (20:50)
[2023-04-18] MEDS: Enoxaparin 40 MG/0.4 ML Syringe SC (05:02)
[2023-04-18 07:40] VITALS: BP 147/61; PULSE 66; RESP 16; TEMP 36.4; O2SAT 96
[2023-04-18] MEDS: Meloxicam 7.5 MG Tablet PO (08:34)
[2023-04-18] MEDS: Aspirin 81 MG TAB.CHEW PO (08:35)
[2023-04-18] MEDS: amLODIPine 10 MG Tablet PO (08:35)
[2023-04-18] MEDS: Senna/Docusate Sodium 1 Tablet 2 TABLET PO ×2 (08:39→20:32)
[2023-04-18 11:19] VITALS: BMI 23.2
[2023-04-18 19:34] VITALS: BP 136/64; PULSE 68; RESP 18; TEMP 37.1; O2SAT 98
[2023-04-18] MEDS: Atorvastatin Calcium 40 MG Tablet PO (20:32)
[2023-04-18 20:39] VITALS: O2SAT 98
[2023-04-18 21:26] VITALS: BMI 23.2
[2023-04-19] MEDS: Enoxaparin 40 MG/0.4 ML Syringe SC (04:57)
[2023-04-19 07:07] VITALS: BP 135/78; PULSE 83; RESP 18; TEMP 36.4; O2SAT 96
[2023-04-19] MEDS: Aspirin 81 MG TAB.CHEW PO (08:11)
[2023-04-19] MEDS: Meloxicam 7.5 MG Tablet PO (08:11)
[2023-04-19] MEDS: amLODIPine 10 MG Tablet PO (08:11)
[2023-04-19] MEDS: Senna/Docusate Sodium 1 Tablet 2 TABLET PO ×2 (08:18→20:23)
[2023-04-19 12:53] VITALS: BMI 23.2
[2023-04-19 19:32] VITALS: BP 145/62; PULSE 69; RESP 17; TEMP 36.7; O2SAT 98
[2023-04-19] MEDS: Atorvastatin Calcium 40 MG Tablet PO (20:22)
[2023-04-20] MEDS: Enoxaparin 40 MG/0.4 ML Syringe SC (04:54)
[2023-04-20] MEDS: Aspirin 81 MG TAB.CHEW PO (08:41)
[2023-04-20] MEDS: Meloxicam 7.5 MG Tablet PO (08:41)
[2023-04-20] MEDS: amLODIPine 10 MG Tablet PO (08:41)
[2023-04-20 10:00] VITALS: BP 150/69; PULSE 68; RESP 16; TEMP 36.6; O2SAT 97
--- NOTE | 2023-04-20 12:12 | PCM.PROGNOTE ---
Subjective Subjective Afebrile VSS-systolic blood pressures consistently above 130. Blood pressure this morning is 150/69. Diastolics are always within goal. Heart rate is within normal limits. Maintaining appropriate oxygen saturation on RA Oral intake is good Discussed with nursing - no problems that need addressed Reviewed the PT/OT/ST notes Medication list reviewed. Tomasa denies lightheadedness, vertigo, CP, SOB at rest, SOB with exertion, cough, nausea, vomiting, abd pain, diarrhea, constipation, dysuria, calf pain and ankle swelling. She is very active in therapy and is doing well. She is ambulating without a device and not losing her balance. Memory is impaired and she has a hard time following verbal instructions.......she is able to mimic what the therapist is doing. Objective Data Objective Data Vital Signs: Vital Signs Temp Pulse Resp BP Pulse Ox O2 Del Method 97.9 F 68 16 150/69 H 97 Room Air 04/20/23 10:00 04/20/23 10:00 04/20/23 10:00 04/20/23 10:00 04/20/23 10:00 04/20/23 10:00 Oxygen Delivery Method Room Air Weight: 147 lb 14.883 oz Body Mass Index (BMI) 23.2 Intake & Output: Intake and Output for Last 24 Hours 04/18/23 04/19/23 04/20/23 23:59 23:59 23:59 Intake Total 1630 / 1630 1925 / 1925 320 / 320 Output Total 1250 / 1250 400 / 400 Balance 1630 / 1630 675 / 675 -80 / -80 Lab / Micro Data Result Diagrams: 04/13/23 05:30 04/13/23 05:30 Physical Exam Const alert and no apparent distress General Appearance: cooperative HEENT moist oral mucous membranes Resp normal respiratory effort, normal air movement and clear to auscultation bilaterally Effort and Inspection: able to speak in complete sentences Cardio regular rate, regular rhythm, no murmurs, no rub and no gallops GI normal to inspection, nondistended, normoactive bowel sounds GI Narrative: No guarding with palpation. No masses and no hepatosplenomegaly. Extremity no calf tenderness and no pedal edema Skin no wounds and no jaundice General Skin Exam: no breakdown Psych cooperative Assessment & Plan Assessment/Plan (1) Physical debility: (2) Ischemic cerebrovascular accident (CVA): (3) Brain TIA: (4) Dehydration: (5) TGA (transient global amnesia): (6) Generalized weakness: (7) Anxiety: (8) Elevated TSH: (9) Hypertension: (10) Venous insufficiency: (11) Hearing loss: PLAN: Plan 1. Continue therapy 2. BMP and CBC in the a.m. 3. Start lisinopril for better BP control. 4. Having the external amplifier has been a game changer. She is talking a lot and able to communicate. She looks happier and not as frustrated. Jaqueline is 5. Jaqueline is going to purchase a external amplifier so that she will be able to communicate with her following DC. Her quality of life would improve significantly if she had hearing aids. Charges/Coding Visit Charges Inpatient E&M: 50932 Subs Hosp L2
[2023-04-20 16:08] VITALS: BMI 23.2
[2023-04-20] MEDS: Atorvastatin Calcium 40 MG Tablet PO (20:48)
[2023-04-20] MEDS: Senna/Docusate Sodium 1 Tablet 2 TABLET PO (20:49)
[2023-04-20 22:00] VITALS: BP 140/71; PULSE 73; RESP 18; TEMP 36.5; O2SAT 97
[2023-04-21] MEDS: Enoxaparin 40 MG/0.4 ML Syringe SC (06:14)
[2023-04-21 07:13] VITALS: BP 153/73; PULSE 72; RESP 18; TEMP 36.6; O2SAT 94
[2023-04-21] MEDS: amLODIPine 10 MG Tablet PO (08:00)
[2023-04-21] MEDS: Aspirin 81 MG TAB.CHEW PO (08:00)
[2023-04-21] MEDS: Senna/Docusate Sodium 1 Tablet 2 TABLET PO ×2 (08:00→21:15)
[2023-04-21] MEDS: Meloxicam 7.5 MG Tablet PO (08:00)
--- NOTE | 2023-04-21 14:56 | CASEMGMT ---
Social Work SW phoned both daughters to follow up on HHC options. DtrMinnie, returned phone call and provided HHC choices - [facility], [facility], [facility]. HILDA phoned referral to [facility] for PT/OT/ST/SN. Josseline Forde, AIRFIELD MANAGER CUSTOMER FACILITIES SUPERVISOR
[2023-04-21 17:00] VITALS: BMI 23.2
[2023-04-21 19:28] VITALS: BP 124/66; PULSE 72; RESP 16; TEMP 36.7; O2SAT 97
[2023-04-21] MEDS: Atorvastatin Calcium 40 MG Tablet PO (21:15)
[2023-04-21] MEDS: Carbamide Peroxide 15 ML Bottle 5 DRP OTIC (21:15)
[2023-04-21 21:26] VITALS: BMI 23.2
[2023-04-22] MEDS: Enoxaparin 40 MG/0.4 ML Syringe SC (06:00)
[2023-04-22 07:02] LABS: Absolute Lymphocyte Count 2.02 X10^3/uL (0.83-4.51); Absolute Neutrophil Count 6.1 X10^3/uL (2.0-7.7); Basophil# 0.03 X10^3/uL; Basophil% 0.3 % (0-1); Eosinophil# 0.18 X10^3/uL; Hematocrit 38.8 % (37-47); Hemoglobin 12.6 g/dL (12.0-15.0); Lymphocyte # 2.02 X10^3/ul (0.83-4.51); Lymphocyte % 22.2 % (19-41); Mean Corp Hgb Conc 32.5 g/dL (32-36); Mean Corpuscular Hgb 28.7 pg (27.0-32.0); Mean Corpuscular Volume 88.4 fL (81-99); Mean Platelet Vol. 10.2 fl (6.2-12.0); Monocyte# 0.71 X10^3/uL; Monocyte% 7.8 % (0-10); NRBC Flagged by Analyzer 0 % (0-5); Neutrophil # 6.13 X10^3/uL (2.7-7.7); Neutrophil % 67.3 % (47-70); Platelet Count 148 K/mm3 (150-450); RBC Distribution Width CV 13.5 % (11.6-14.6); RBC Distribution Width SD 44.4 fl (35.1-43.9); Red Blood Count 4.39 M/mm3 (4.2-5.4); White Blood Count 9.1 K/mm3 (4.4-11.0)
[2023-04-22 07:35] LABS: Anion Gap 5 (5-15); BUN 24 mg/dL (7-18); BUN/Creat Ratio 26.8 RATIO (10-20); Calcium,Total 8.8 mg/dL (8.5-10.1); Chloride 110 mmol/L (98-107); EST Glomerular Filtration Rate 64 mL/min (>60); Est Glom Filt Rate - Afr Amer 77 mL/min (>60); Estimated Creatinine Clearance 43.56 ml/min; Glucose 91 mg/dL (74-106); Sodium Level 141 mmol/L (136-145)
[2023-04-22 08:13] VITALS: BP 164/83; PULSE 68; RESP 16; TEMP 36.7; O2SAT 97
[2023-04-22] MEDS: Aspirin 81 MG TAB.CHEW PO (08:21)
[2023-04-22] MEDS: Senna/Docusate Sodium 1 Tablet 2 TABLET PO ×2 (08:21→21:07)
[2023-04-22] MEDS: Meloxicam 7.5 MG Tablet PO (08:21)
[2023-04-22] MEDS: Carbamide Peroxide 15 ML Bottle 5 DRP OTIC ×2 (08:21→21:07)
[2023-04-22] MEDS: amLODIPine 10 MG Tablet PO (08:22)
--- NOTE | 2023-04-22 13:02 | PN_ITS ---
Subjective Subjective Afebrile VSS Maintaining appropriate oxygen saturation on RA Oral intake is good Discussed with nursing - no problems that need addressed Reviewed the PT/OT/ST notes Medication list reviewed. All lab from this morning was personally reviewed. Hemoglobin is normal at 12.6. White blood cell count is now normal at 9.1. Platelets are mildly decreased at 148 but stable. Differential is unremarkable. Sodium is 141 and the potassium is 4.0. The BUN is 24, down from 34 on 04/13/2023. Creatinine is down to 0.9 from 1.1 on 04/13/2023. Tomasa denies lightheadedness, vertigo, CP, SOB at rest, SOB with exertion, cough, nausea, vomiting, abd pain, diarrhea, constipation, dysuria, calf pain and ankle swelling. She has no complaints. She is asking me a lot of questions about DC today and I tell her we will go over all the discharge instructions at DC and she will have it all written out. She is doing things in therapy that she has not been able to do for years and she is motivated to keep doing her exercises at home post DC so she can maintain her strength and flexibility. I told her about the exercise classes for seniors at [facility] and I thing this would be amazing for her. I think she has been chronically depressed from inability to communicate due to hearing loss and this has impaired her ability to be social and interact in an effective way with other people. Objective Data Objective Data Vital Signs: Vital Signs Temp Pulse Resp BP Pulse Ox O2 Del Method 98.0 F 68 16 164/83 H 97 Room Air 04/22/23 08:13 04/22/23 08:13 04/22/23 08:13 04/22/23 08:13 04/22/23 08:13 04/22/23 08:13 Oxygen Delivery Method Room Air Weight: 147 lb 14.883 oz Body Mass Index (BMI) 23.2 Intake & Output: Intake and Output for Last 24 Hours 04/20/23 04/21/23 04/22/23 23:59 23:59 23:59 Intake Total 1100 / 1400 1480 / 1480 360 / 360 Output Total 400 / 800 1325 / 1325 Balance 700 / 600 155 / 155 360 / 360 Lab / Micro Data 04/22/23 05:37 04/22/23 05:37 Labs: Laboratory Results - last 24 hr 04/22/23 05:37: WBC 9.1, RBC 4.39, Hgb 12.6, Hct 38.8, MCV 88.4, MCH 28.7, MCHC 32.5, RDW Std Deviation 44.4 H, RDW Coeff of Mark 13.5, Plt Count 148 L, MPV 10.2, Immature Gran % (Auto) 0.400, Neut % (Auto) 67.3, Lymph % (Auto) 22.2, [place] % (Auto) 7.8, Eos % (Auto) 2.0, Baso % (Auto) 0.3, Absolute Neuts (auto) 6.1, Absolute Lymphs (auto) 2.02, Nucleated RBC % 0, Sodium 141, Potassium 4.0, Chloride 110 H, Carbon Dioxide 26.0, Anion Gap 5, BUN 24 H, Creatinine 0.90, Estim Creat Clear Calc 43.56, Est GFR (MDRD) Af Amer 77, Est GFR (MDRD) Non-Af 64, BUN/Creatinine Ratio 26.8 H, Glucose 91, Calcium 8.8 Physical Exam Const alert, oriented x3, no apparent distress and healthy appearing Constitutional Narrative: She has no trouble hearing me with the external amplifier and responds appropriately to questions. We are able to have a conversation now and do not have to yell and repeat everything multiple times. She is smiling and laughing. General Appearance: cooperative Resp normal respiratory effort, normal air movement and clear to auscultation bilaterally Effort and Inspection: able to speak in complete sentences; Negative for tachypneic Cardio regular rate, regular rhythm, no murmurs, no rub and no gallops GI normal to inspection, nondistended, normoactive bowel sounds, soft to palpation and non-tender GI Narrative: no guarding with palpation Extremity no calf tenderness and no pedal edema Extremity Narrative: No clubbing. She has joint enlargement of the MCP's and DIP's consistent with OA. No erythema and no significant increase in the warmth to touch. Some pain with palpation Skin General Skin Exam: no breakdown Rashes: no rashes Psych cooperative Appearance: appropriate Attitude: No agitated Activity / Motor Behavior: Negative for restless Thought Content: No hallucination(s) Assessment & Plan Assessment/Plan (1) Physical debility: (2) Ischemic cerebrovascular accident (CVA): PLAN: Small ischemic CVA in the R frontal cortex.......which does not account for aphasia and gait instability. (3) Brain TIA: PLAN: Perhaps she had a TIA that caused the aphasia and gait instability. She has normal sized atria but, she had sx in a different area of the brain than the CVA found on MRI. Will get a 30 day event monitor as an OP to assess for PAF. (4) Dehydration: PLAN: This is chronic.......MM always dry and fluid intake is only fair. (5) TGA (transient global amnesia): (6) Generalized weakness: (7) Anxiety: (8) Elevated TSH: (9) Hypertension: QUALIFIERS: Hypertension type: primary hypertension Qualified Code(s): I10 - Essential (primary) hypertension PLAN: (10) Venous insufficiency: PLAN: Controlled with YUDITH hose. Amlodipine likely contributes to LE edema and may need to be changed if edema recurs at home. (11) Hearing loss: QUALIFIERS: Hearing loss type: conductive Laterality: bilateral Qualified Code(s): H90.0 - Conductive hearing loss, bilateral (12) Fibromyalgia: (13) Impacted cerumen, bilateral: PLAN: Plan 1. Continue therapy 2. Arrange an appt with ENT following DC to arrange to see an environmental systems coordinator and get hearing aids. 3. Recommend that family get an external amplifier for use with Tomasa post DC from rehab Charges/Coding Visit Charges Inpatient E&M: 11035 Subs Hosp L2
[2023-04-22] MEDS: Lisinopril 2.5 MG Tablet PO (14:13)
[2023-04-22 14:52] VITALS: BMI 23.2
[2023-04-22 20:00] VITALS: BP 124/68; PULSE 73; RESP 17; TEMP 36.8; O2SAT 98
[2023-04-22] MEDS: Atorvastatin Calcium 40 MG Tablet PO (21:06)
[2023-04-22] MEDS: MELATONIN 3 MG TABLET PO (21:24)
[2023-04-22 21:25] VITALS: BMI 23.2
[2023-04-23] MEDS: Enoxaparin 40 MG/0.4 ML Syringe SC (05:10)
[2023-04-23 08:37] VITALS: BP 130/63; PULSE 74; RESP 18; TEMP 36.6; O2SAT 97
[2023-04-23] MEDS: Aspirin 81 MG TAB.CHEW PO (08:39)
[2023-04-23] MEDS: Meloxicam 7.5 MG Tablet PO (08:39)
[2023-04-23] MEDS: Carbamide Peroxide 15 ML Bottle 5 DRP OTIC ×2 (08:41→22:17)
[2023-04-23] MEDS: Lisinopril 2.5 MG Tablet PO (08:42)
[2023-04-23] MEDS: amLODIPine 10 MG Tablet PO (08:42)
[2023-04-23] MEDS: Senna/Docusate Sodium 1 Tablet 2 TABLET PO ×2 (08:42→22:17)
--- NOTE | 2023-04-23 12:22 | PCM.PROGNOTE ---
Subjective Subjective Afebrile VSS-with the addition of lisinopril to her drug regimen the blood pressure today was 130/63 which is a good improvement. Maintaining appropriate oxygen saturation on RA Oral intake is good Discussed with nursing - no problems that need addressed Reviewed the PT/OT/ST notes Medication list reviewed. Breanna denies headache, lightheadedness, vertigo, chest pain, shortness of breath, cough, nausea/vomiting/abdominal pain, dysuria and calf tenderness. She is very upbeat and interactive since the external amplifier is being used and she can actually hear. Objective Data Objective Data Vital Signs: Vital Signs Temp Pulse Resp BP Pulse Ox O2 Del Method 97.8 F 74 18 130/63 H 97 Room Air 04/23/23 08:37 04/23/23 08:37 04/23/23 08:37 04/23/23 08:37 04/23/23 08:37 04/23/23 08:37 Oxygen Delivery Method Room Air Weight: 147 lb 14.883 oz Body Mass Index (BMI) 23.2 Intake & Output: Intake and Output for Last 24 Hours 04/21/23 04/22/23 04/23/23 23:59 23:59 23:59 Intake Total 1480 / 1480 1080 / 1080 100 / 100 Output Total 1325 / 1325 350 / 350 Balance 155 / 155 730 / 730 100 / 100 Lab / Micro Data 04/22/23 05:37 04/22/23 05:37 Physical Exam Const alert, oriented x3 and no apparent distress General Appearance: cooperative Resp clear to auscultation bilaterally Cardio regular rate, regular rhythm and no gallops GI normal to inspection, nondistended, normoactive bowel sounds, soft to palpation and non-tender Extremity no calf tenderness General Extremity: Negative for edema Skin General Skin Exam: no breakdown Rashes: no rashes Psych cooperative and affect normal Assessment & Plan Assessment/Plan (1) Physical debility: (2) Ischemic cerebrovascular accident (CVA): PLAN: Small ischemic CVA in the R frontal cortex.......which does not account for aphasia and gait instability. (3) Brain TIA: PLAN: Perhaps she had a TIA that caused the aphasia and gait instability. She has normal sized atria but, she had sx in a different area of the brain than the CVA found on MRI. Will get a 30 day event monitor as an OP to assess for PAF. (4) Dehydration: PLAN: This is chronic.......MM always dry and fluid intake is only fair. (5) TGA (transient global amnesia): (6) Generalized weakness: (7) Anxiety: (8) Elevated TSH: (9) Hypertension: QUALIFIERS: Hypertension type: primary hypertension Qualified Code(s): I10 - Essential (primary) hypertension PLAN: (10) Venous insufficiency: PLAN: Controlled with YUDITH hose. Amlodipine likely contributes to LE edema and may need to be changed if edema recurs at home. (11) Hearing loss: QUALIFIERS: Hearing loss type: conductive Laterality: bilateral Qualified Code(s): H90.0 - Conductive hearing loss, bilateral (12) Fibromyalgia: (13) Impacted cerumen, bilateral: PLAN: Plan 1. Continue therapy 2. plan DC home on 04/25/23. Her dtr Jaqueline will be staying with her for 2 weeks post DC 3. An appt has been arranged for her to see Dr. Jn Abebe to discuss a hearing test. 4. Her dtr is purchasing a external amplifier. 5. will also need to follow up with neurology post DC 6. 30 day event monitor at DC and then follow up with cardiology 7. There seems to be discordance among the dtr's about whether she will have OP or home health therapy at DC. They will need to come to a decision RE: therapy post DC and then 1 of them will call and let the SW know Charges/Coding Visit Charges Inpatient E&M: 05950 Subs Hosp L2
--- NOTE | 2023-04-23 13:17 | CASEMGMT ---
Addendum entered by Josseline Forde 04/24/23 12:28: SW phoned dtr, Minnie, to follow up on HHC vs OP. Pt/dtrs requesting to stay with HHC. Plan: DC home 04/25 as planned Original Note: Social Work IDT met with patient and dtr, Jaqueline, via conference call for Team meeting. Discussed patient's progress in PT/OT/ST/SN. Confirmed DC home with dtr assistance for the first two weeks. Pt will have [facility]HC PT/OT/ST/SN. However, pt is perseverating on having HHC and not wanting HHC. Inquired about reasons behind not wanting HHC. Pt explained not being able to use machines for intensive therapy at home. IDT agrees and if dtr can assist with scheduling transportation to and from outpatient therapy sessions once dtr returns back to home. Pt would like to use [facility]. Dtr stated she would like to use the [facility], chosen from the previous resources given by this worker. SW educated to only being able to use Van if pt lives in [facility], but SW to contact and confirm. SW to follow. Josseline Forde, [employer]
--- NOTE | 2023-04-23 13:32 | PCM.DC.SUM ---
Providers Date of Admission: 04/12/23 Primary Care Physician: Dr. America Tyson DO Reason For Visit: CVA Diagnosis Discharge Diagnosis (1) Physical debility: Status: Acute Code(s): R53.81 - Other malaise (2) Ischemic cerebrovascular accident (CVA): Status: Acute Code(s): I63.9 - Cerebral infarction, unspecified (3) Brain TIA: Status: Resolved Code(s): G45.9 - Transient cerebral ischemic attack, unspecified (4) Dehydration: Status: Acute Code(s): E86.0 - Dehydration (5) TGA (transient global amnesia): Status: Resolved Code(s): G45.4 - Transient global amnesia (6) Generalized weakness: Status: Acute Code(s): R53.1 - Weakness (7) Anxiety: Status: Acute Code(s): F41.9 - Anxiety disorder, unspecified (8) Elevated TSH: Status: Acute Code(s): R79.89 - Other specified abnormal findings of blood chemistry (9) Hypertension: Status: Chronic Code(s): I10 - Essential (primary) hypertension (10) Venous insufficiency: Status: Acute Code(s): I87.2 - Venous insufficiency (chronic) (peripheral) (11) Hearing loss: Status: Chronic Code(s): H91.90 - Unspecified hearing loss, unspecified ear Medications at Discharge Home Medications meloxicam 7.5 mg tablet 7.5 mg PO DAILY OSTEOARTHRITIS 04/08/23 acetaminophen 325 mg tablet 650 mg (2 x 325 mg) PO Q6H PRN PRN Pain 1-10 Or Fever>100.7 #0 tabs 04/12/23 aluminum-mag hydroxide-simethicone 400 mg-400 mg-40 mg/5 mL oral susp (Mag-Al Plus Extra Strength) 30 ml PO Q6H PRN PRN Gastric Burning #0 mL 04/12/23 amlodipine 10 mg tablet 10 mg PO DAILY BP 04/12/23 aspirin 81 mg chewable tablet 81 mg PO BREAKFAST Heart health 04/12/23 atorvastatin 80 mg tablet 40 mg PO QHS Cholestrol 04/12/23 melatonin 3 mg tablet 3 mg PO QHS PRN PRN Insomnia #0 tabs 04/12/23 sennosides 8.6 mg-docusate sodium 50 mg tablet (Stool Softener-Stimulant Laxative) 2 tab PO BID PRN PRN Constipation #0 tabs 04/12/23 Weight / BMI Weight Weight: 67.1 kg Body Mass Index (BMI) 23.2 ABG / Lab / Microbiology Data 04/22/23 05:37 04/22/23 05:37 Discharge Plan Admission Admit Date/Time: 04/12/23 12:07 Attending Provider: Estefany Bingham Primary Care Provider: America Tyson Discharge Orders/Prescriptions Prescriptions: No Action meloxicam 7.5 mg tablet 7.5 mg PO DAILY Patient Comments: TAKE 1 TABLET BY MOUTH EVERY DAY NEEDED FOR OSTEOARTHRITIS PAIN acetaminophen 325 mg Tablet 650 mg PO Q6H PRN PRN (Reason: Pain 1-10 Or Fever>100.7) Qty: 0 0RF sennosides-docusate sodium [Stool Softener-Stimulant Laxat] 8.6-50 mg Tablet 2 tab PO BID PRN PRN (Reason: Constipation) Qty: 0 0RF melatonin 3 mg Tablet 3 mg PO QHS PRN PRN (Reason: Insomnia) Qty: 0 0RF alum-mag hydroxide-simeth [Mag-Al Plus Extra Strength] 400-400-40 mg/5 mL Suspension 30 ml PO Q6H PRN PRN (Reason: Gastric Burning) Qty: 0 0RF atorvastatin 80 mg tablet 40 mg PO QHS amlodipine 10 mg tablet 10 mg PO DAILY aspirin 81 mg tablet,chewable 81 mg PO BREAKFAST Referrals / Follow Up: America Tyson DO [Primary Care Provider] - Disposition Disposition (needs filled in before D/C Order can be placed): Home Health Service
[2023-04-23 17:00] VITALS: BMI 23.2
[2023-04-23 22:15] VITALS: BP 132/69; PULSE 76; RESP 18; TEMP 36.9; O2SAT 97; BMI 23.2
[2023-04-23] MEDS: Atorvastatin Calcium 40 MG Tablet PO (22:17)
--- NOTE | 2023-04-24 03:30 | NURSING ---
Reviewed and agree with Elizabeth RON, documentation and assessment charting.
[2023-04-24] MEDS: Enoxaparin 40 MG/0.4 ML Syringe SC (05:03)
[2023-04-24 05:11] VITALS: BMI 23.1
[2023-04-24 07:57] VITALS: BP 150/57; PULSE 73; RESP 16; TEMP 36.6; O2SAT 98
[2023-04-24] MEDS: Meloxicam 7.5 MG Tablet PO (08:50)
[2023-04-24] MEDS: Aspirin 81 MG TAB.CHEW PO (08:50)
[2023-04-24] MEDS: Carbamide Peroxide 15 ML Bottle 5 DRP OTIC ×2 (08:50→22:36)
[2023-04-24] MEDS: Lisinopril 2.5 MG Tablet PO (08:51)
[2023-04-24] MEDS: Senna/Docusate Sodium 1 Tablet 2 TABLET PO ×2 (08:51→22:35)
[2023-04-24] MEDS: amLODIPine 10 MG Tablet PO (08:51)
--- NOTE | 2023-04-24 13:33 | DCINST_ITS ---
Discharge Instructions Diet Discharge Diet: Low fat / Low cholesterol Activity Discharge Activity: May Not Drive (there is a possibility that you could drive again BUT, you must have hearing aids and then take/pass a test at the [place] driving school prior to driving ) and - (You may want to have a cane with you when walking on uneven surfaces to help your balance. ) Weight Bearing Status: Full weight bearing Dressing / Incision Call your doctor if you observe: Fever of 101 or Higher, Shortness of breath, Dizziness, Fainting spells, Swelling in the ankles, Chest pain, Increased palpitations (irregular heartbeat), Calf discomfort and - (STROKE symptoms: facial droop, slurred speech, inability to get words out, weakness on 1 side of the body and not the other, numbness on 1 side of the body and not the other, inability to maintain your balance sitting or standing, vertigo. ) Follow Up Care Please Follow Up With: America Tyson, DO When: in 7-10 days post op. You will also need to follow up with an title investigator. Test Results: Test results from this visit will be discussed in further detail at your follow- up appointment, if applicable. Pending Tests Upon Discharge: none Discharge Plan Admission Admit Date/Time: 04/12/23 12:07 Primary Reason for Your Visit: Post stroke debility. Attending Provider: Estefany Bingham Primary Care Provider: America Tyson Instructions Additional Instructions / Restrictions: 1. You have done a wonderful job in therapy. You are like a new person since y ou first came to rehab. The external hearing amplifier has been a game changer! You are much more social and not as overwhelmed. You are enjoying playing the games and interacting with the therapists. Hearing loss in the elderly is one of the biggest causes of depression and it makes it easier to get scammed. You also miss a lot of information because you can not hear what is being said to you. 2. You are not allowed to drive. You MUST be able to hear to drive. If you can not hear you will miss sirens and horns and it puts you and others at risk for being involved in a motor vehicle crash. IF you are able to get hearing aids and you are able to pass the driving test at the school in [place] you will be able to drive again. 3. Your daughter is going to get you an external amplifier like you used in the hospital so that you will be able to communicate with people. 4. Take care Tomasa. If you have any questions after you leave rehab please do not hesitate to call me. OFFICE: [phone] CELL: [phone] REHAB: [phone] Discharge Orders/Prescriptions Prescriptions: New atorvastatin 40 mg Tablet 40 mg PO QHS Qty: 30 0RF Rx Instructions: take 1 tab at bedtime nightly Ear Drops (carbamide peroxide) 6.5 % Drops 5 drp otic (ear) BID Qty: 1 0RF Rx Instructions: Place 5 drops in each ear and then place a cotton ball in the each ear once a week. lisinopril 2.5 mg Tablet 2.5 mg PO DAILY Qty: 30 0RF Continued acetaminophen 325 mg Tablet 650 mg PO Q6H PRN PRN (Reason: Pain 1-10 Or Fever>100.7) Qty: 0 0RF melatonin 3 mg Tablet 3 mg PO QHS PRN PRN (Reason: Insomnia) Qty: 0 0RF amlodipine 10 mg tablet 10 mg PO DAILY aspirin 81 mg tablet,chewable 81 mg PO BREAKFAST meloxicam 7.5 mg tablet 7.5 mg PO DAILY Qty: 30 0RF Patient Comments: TAKE 1 TABLET BY MOUTH EVERY DAY NEEDED FOR OSTEOARTHRITIS PAIN Rx Instructions: take with food. Discontinued sennosides-docusate sodium [Stool Softener-Stimulant Laxat] 8.6-50 mg Tablet 2 tab PO BID PRN PRN (Reason: Constipation) Qty: 0 0RF alum-mag hydroxide-simeth [Mag-Al Plus Extra Strength] 400-400-40 mg/5 mL Suspension 30 ml PO Q6H PRN PRN (Reason: Gastric Burning) Qty: 0 0RF atorvastatin 80 mg tablet 40 mg PO QHS Referrals / Follow Up: Jn Abebe MD [Med Staff - Courtesy Staff] - 05/08/23 11:15 am America Tyson DO [Primary Care Provider] - 04/30/23 11:15 am Disposition Disposition (needs filled in before D/C Order can be placed): Home Health Service
--- NOTE | 2023-04-24 14:22 | PCM.DC.SUM ---
Providers Date of Admission: 04/12/23 Date of Discharge: 04/25/23 Primary Care Physician: Dr. America Tyson, DO none Reason For Visit: CVA Diagnosis Discharge Diagnosis (1) Physical debility: Status: Acute Code(s): R53.81 - Other malaise (2) Ischemic cerebrovascular accident (CVA): Status: Acute Code(s): I63.9 - Cerebral infarction, unspecified Plan: Small ischemic CVA in the R frontal cortex.......which does not account for aphasia and gait instability. (3) Brain TIA: Status: Resolved Code(s): G45.9 - Transient cerebral ischemic attack, unspecified Plan: Perhaps she had a TIA that caused the aphasia and gait instability. She has normal sized atria but, she had sx in a different area of the brain than the CVA found on MRI. Will get a 30 day event monitor as an OP to assess for PAF. (4) Dehydration: Status: Acute Code(s): E86.0 - Dehydration Plan: This is chronic.......MM always dry and fluid intake is only fair. (5) TGA (transient global amnesia): Status: Resolved Code(s): G45.4 - Transient global amnesia (6) Generalized weakness: Status: Acute Code(s): R53.1 - Weakness (7) Anxiety: Status: Acute Code(s): F41.9 - Anxiety disorder, unspecified (8) Elevated TSH: Status: Acute Code(s): R79.89 - Other specified abnormal findings of blood chemistry (9) Hypertension: Status: Chronic Code(s): I10 - Essential (primary) hypertension Qualifiers: Hypertension type: primary hypertension Qualified Code(s): I10 - Essential (primary) hypertension Plan: Systolic BP in the AM is consistently elevated and she was started on Lisinopril. Goal BP in light of the stroke is < 130/80. Diastolic is consistently within goal. (10) Venous insufficiency: Status: Acute Code(s): I87.2 - Venous insufficiency (chronic) (peripheral) Plan: Controlled with YUDITH hose. Amlodipine likely contributes to LE edema and may need to be changed if edema recurs at home. (11) Hearing loss: Status: Chronic Code(s): H91.90 - Unspecified hearing loss, unspecified ear Qualifiers: Hearing loss type: conductive Laterality: bilateral Qualified Code(s): H90.0 - Conductive hearing loss, bilateral (12) Fibromyalgia: Status: Chronic Code(s): M79.7 - Fibromyalgia (13) Impacted cerumen, bilateral: Status: Acute Code(s): H61.23 - Impacted cerumen, bilateral Plan 1. Continue therapy 2. Add lisinopril to the current antihypertensive regiment with a goal of getting the blood pressure consistently less than 135/80 3. Continue Debrox and tomorrow or Thursday will attempt to disimpact the cerumen from both ears. 4. Contact Dr. Abebe's office and see if we can get a audiology appointment for her. 5. Her dtr said she would purchase a external amplifier for her on [employer] so that she will be able to communicate with her post DC from rehab. Medications at Discharge Home Medications acetaminophen 325 mg tablet 650 mg (2 x 325 mg) PO Q6H PRN PRN Pain 1-10 Or Fever>100.7 #0 tabs 04/12/23 amlodipine 10 mg tablet 10 mg PO DAILY BP 04/12/23 aspirin 81 mg chewable tablet 81 mg PO BREAKFAST Heart health 04/12/23 melatonin 3 mg tablet 3 mg PO QHS PRN PRN Insomnia #0 tabs 04/12/23 atorvastatin 40 mg tablet 40 mg PO QHS #30 tabs 04/24/23 carbamide peroxide 6.5 % ear drops (Ear Drops (carbamide peroxide)) 5 drp otic (ear) BID #1 BOTTLE 04/24/23 lisinopril 2.5 mg tablet 2.5 mg PO DAILY #30 tabs 04/24/23 meloxicam 7.5 mg tablet 7.5 mg PO DAILY OSTEOARTHRITIS #30 tabs 04/24/23 Hospital Course Operations None Procedures None Summary of Care Provided Minutes Spent on Discharge: 40 Hospital Course: TOMASA QUEEN, is a 82 YO F with a PMH of HTN, anxiety/depression, hearing loss and OA who presented to the ED at [facility] on 04/08/2023 complaining of a 2-day history of episodic confusion. A noncontrast CT brain was unremarkable. MRI showed a small ischemic CVA in the right frontal cortex. The R frontal CVA does not explain the aphasia and gait instability she c/o at presentation to the ED. CTA of the head and neck showed calcific plaque at the origin of the right internal carotid artery causing less than 50% narrowing and calcific plaque at the origin of the left internal carotid artery causing between 50 to 60% narrowing. Echocardiogram showed a normal ejection fraction, no wall motion abnormalities, no significant valvular heart disease and no PFO. Both atria were normal size. She has no hx of PAF. SOC teleneurology was consulted and recommended 81 mg of aspirin daily, Holter monitor, echocardiogram and outpatient neurology follow-up. She was seen by PT/OT/ST and was found to have gait instability (not explained by the frontal CVA), aphasia and confusion. She has been living by herself and was independent with all ADL's and driving. She was admitted to the acute inpt rehab unit at [facility] on 04/12/23 for 3 hours of therapy daily to restore function/independence at or near her level prior to the stroke. At presentation to rehab it was extremely difficult to communicate with Tomasa due to a profound hearing loss. She was confused and somewhat withdrawn and overwhelmed. She has never been evaluated for hearing aids. 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 Both ears were impacted with cerumen and she told me that she has been to ENT to disimpaction but, they did not get the wax out. Apparently in the past she was seen by Dr. Jn Abebe and put under for wax removal and she is not able to understand why this can not be done again, despite me telling her this is not something that should require conscious sedation. We applied an external amplifier and she has been able to hear good. She is now able to follow commands and she has blossomed. She is much more social and talks with everyone on the staff on rehab. She is smiling and has not been anxious at all. She has enjoyed the challenges the therapists have given her, yuniel the JESSICA espinosa. At the time of DC she is ambulating independently on various surfaces without an AD with no LOB. She can ascend/descend 20 steps with a right handrail at supervision with no demonstration of fear. She was fearful of steps at presentation and did not want to attempt initially. She is independent with all ADL's but, for the first 2 weeks home supervision in the shower is recommended. Her dtr Jaqueline will be staying with hr for the first 2 weeks post DC. [employer] is going to purchase an external amplifier for Tomasa so that they can communicate effectively. An appt with Dr. Jn Abebe has been scheduled for 05/08/23. I recommended to Tomasa to have Jaqueline candle her ears following DC. The candles can be purchased on [employer] and there are several video's on [employer] on how to ear candle. This is painless and well tolerated and is very effective in removing wax from the ear canals. The goal for BP control since Tomasa had a stroke is to keep the BP under 130/80 and the LDL less than 70. After a few days of observation and permissive hypertension post stroke there was a trend of elevated systolic blood pressures in the morning with the highest blood pressure being 164/83. Lisinopril 2.5 mg daily was added to her drug regimen and I recommended she take the Amlodipine in the AM and the Lisinopril at HS. She will need a repeat lipid panel and a liver panel in 4 weeks. Tomasa was told she can no longer drive she she would be unable to hear sirens and horns. If she gets hearing aids and passes a driving test at the driving school in [place] she could resume driving. The contact info for the driving school was given to them prior to DC by the . She has an appt to follow up with Dr. Tyson scheduled for her. Physical Exam Const alert, oriented x3, no apparent distress, average body habitus, healthy appearing and well nourished Constitutional Narrative: She has no trouble hearing me with the external amplifier and responds appropriately to questions. We are able to have a conversation now and do not have to yell and repeat everything multiple times. She is smiling and laughing. General Appearance: cooperative and well kempt HEENT normocephalic, external nose normal and moist oral mucous membranes Eyes PERRL and EOMs intact bilaterally Eyes Narrative: Has had BL cataract removal. Visual hdz are intact. General Eye: normal appearance of both eyes and normal light reflex Conjunctiva: conjunctiva normal and other Sclera: sclera normal Neck supple, no JVD, No nodes and no carotid bruits Chest Chest: symmetrical chest wall rise Resp normal respiratory effort, normal air movement and clear to auscultation bilaterally Effort and Inspection: able to speak in complete sentences; Negative for tachypneic Cardio regular rate, regular rhythm, no murmurs, no rub and no gallops GI normal to inspection, nondistended, normoactive bowel sounds, soft to palpation and non-tender GI Narrative: no guarding with palpation no CVA tenderness Extremity no calf tenderness and no pedal edema Extremity Narrative: No clubbing. She has joint enlargement of the MCP's and DIP's consistent with OA. No erythema and no significant increase in the warmth to touch. Some pain with palpation General Extremity: Negative for edema Skin no wounds and no jaundice Skin Narrative: She has patchy areas of depigmentation consistent with her diagnosis of vitiligo.....other family members have this also. General Skin Exam: no breakdown Rashes: no rashes Neuro oriented x3, CN's II-XII intact bilaterally, moves all extremities, no focal motor deficits and no sensory deficits noted Psych cooperative Psych Narrative: She is much more interactive with staff than at admission and outgoing. Gets a bit anxious over the instructions and plan for going home. Sleeping well and has a good appetite. Appearance: appropriate Attitude: No agitated Activity / Motor Behavior: Negative for restless Thought Content: No suicidality, No homicidality, No delusion(s) and No hallucination(s) Weight / BMI Weight Weight: 147 lb 4.301 oz Body Mass Index (BMI) 23.1 ABG / Lab / Microbiology Data 04/22/23 05:37 04/22/23 05:37 D/C Instructions Discharge Diet: Low fat / Low cholesterol Weight Bearing Status: Full weight bearing Call your doctor if you observe: Fever of 101 or Higher, Shortness of breath, Dizziness, Fainting spells, Swelling in the ankles, Chest pain, Increased palpitations (irregular heartbeat), Calf discomfort and - (STROKE symptoms: facial droop, slurred speech, inability to get words out, weakness on 1 side of the body and not the other, numbness on 1 side of the body and not the other, inability to maintain your balance sitting or standing, vertigo. ) Pending Tests Upon Discharge: none Please Follow Up With: America Tyson, DO When: in 7-10 days post op. You will also need to follow up with an mine equipment design engineer. Meaningful Use Info Meaningful Use Diagnoses (Choose all that apply): Ischemic CVA CVA Therapy Assessed for PT,OT and/or ST?: Yes Ischemic Stroke Antithrombotic order at d/c?: Yes Dx of Atrial fib/flutter?: No Anticoagulant at discharge?: No Reason anticoagulant not ordered: Treatment not Indicated Statins at discharge?: Yes Primary Dx Acute Ischemic CVA?: Yes IV thrombolytic ordered during stay?: No Reason IV thrombolytic not ordered: Procedure not Indicated Discharge Plan Admission Admit Date/Time: 04/12/23 12:07 Primary Reason for Your Visit: Post stroke debility. Attending Provider: Estefany Bingham Primary Care Provider: America Tyson Instructions Additional Instructions / Restrictions: 1. You have done a wonderful job in therapy. You are like a new person since you first came to rehab. The external hearing amplifier has been a game changer! You are much more social and not as overwhelmed. You are enjoying playing the games and interacting with the therapists. Hearing loss in the elderly is one of the biggest causes of depression and it makes it easier to get scammed. You also miss a lot of information because you can not hear what is being said to you. 2. You are not allowed to drive. You MUST be able to hear to drive. If you can not hear you will miss sirens and horns and it puts you and others at risk for being involved in a motor vehicle crash. IF you are able to get hearing aids and you are able to pass the driving test at the school in [place] you will be able to drive again. 3. Your daughter is going to get you an external amplifier like you used in the hospital so that you will be able to communicate with people. 4. Take care Sonjia. If you have any questions after you leave rehab please do not hesitate to call me. OFFICE: [phone] CELL: [phone] REHAB: [phone] Discharge Orders/Prescriptions Prescriptions: New atorvastatin 40 mg Tablet 40 mg PO QHS Qty: 30 0RF Rx Instructions: take 1 tab at bedtime nightly Ear Drops (carbamide peroxide) 6.5 % Drops 5 drp otic (ear) BID Qty: 1 0RF Rx Instructions: Place 5 drops in each ear and then place a cotton ball in the each ear once a week. lisinopril 2.5 mg Tablet 2.5 mg PO DAILY Qty: 30 0RF Continued acetaminophen 325 mg Tablet 650 mg PO Q6H PRN PRN (Reason: Pain 1-10 Or Fever>100.7) Qty: 0 0RF melatonin 3 mg Tablet 3 mg PO QHS PRN PRN (Reason: Insomnia) Qty: 0 0RF amlodipine 10 mg tablet 10 mg PO DAILY aspirin 81 mg tablet,chewable 81 mg PO BREAKFAST meloxicam 7.5 mg tablet 7.5 mg PO DAILY Qty: 30 0RF Patient Comments: TAKE 1 TABLET BY MOUTH EVERY DAY NEEDED FOR OSTEOARTHRITIS PAIN Rx Instructions: take with food. Discontinued sennosides-docusate sodium [Stool Softener-Stimulant Laxat] 8.6-50 mg Tablet 2 tab PO BID PRN PRN (Reason: Constipation) Qty: 0 0RF alum-mag hydroxide-simeth [Mag-Al Plus Extra Strength] 400-400-40 mg/5 mL Suspension 30 ml PO Q6H PRN PRN (Reason: Gastric Burning) Qty: 0 0RF atorvastatin 80 mg tablet 40 mg PO QHS Other Ambulatory Orders: 30 Day Event Recorder Preventi (Urgent) Timeframe: 1 Day Facility: [facility] - Location: Cardiovascular Services Ordered By: Dr. Estefany Bingham Referrals / Follow Up: Jn Abebe MD [Med Staff - Courtesy Staff] - 05/08/23 11:15 am America Tyson DO [Primary Care Provider] - 04/30/23 11:15 am Disposition Disposition (needs filled in before D/C Order can be placed): Home Health Service Charges/Coding Visit Charges Inpatient E&M: 59016 Disch Hosp >30min
[2023-04-24 17:00] VITALS: BMI 23.1
[2023-04-24 22:20] VITALS: BP 127/59; PULSE 69; RESP 14; TEMP 36.7; O2SAT 98; BMI 23.1
[2023-04-24] MEDS: Atorvastatin Calcium 40 MG Tablet PO (22:36)
--- NOTE | 2023-04-25 01:25 | NURSING ---
Reviewed and agree with Elizabeth RON, documentation and assessment charting.
[2023-04-25] MEDS: Enoxaparin 40 MG/0.4 ML Syringe SC (05:58)
[2023-04-25 08:17] VITALS: BP 129/70; PULSE 69; RESP 16; TEMP 36.9; O2SAT 96
[2023-04-25] MEDS: Senna/Docusate Sodium 1 Tablet 2 TABLET PO (09:03)
[2023-04-25] MEDS: Lisinopril 2.5 MG Tablet PO (09:03)
[2023-04-25] MEDS: Meloxicam 7.5 MG Tablet PO (09:04)
[2023-04-25] MEDS: amLODIPine 10 MG Tablet PO (09:04)
[2023-04-25] MEDS: Aspirin 81 MG TAB.CHEW PO (09:04)
[2023-04-25] MEDS: Carbamide Peroxide 15 ML Bottle 5 DRP OTIC (09:04)
[2023-04-25 15:00] VITALS: BP 129/70; PULSE 69; RESP 16; TEMP 36.9; O2SAT 96
--- NOTE | 2023-04-25 15:00 | NURSING ---
Daughter and patient aware of dc orders and verbalized understanding. Daughter aware to call Thursday to hospital registration nursing scheduler and inquire about her mother's heart monitor placement and daughter has the order. Patient aware she cannot drive yet and Dr Bingham is recommending she take the driver/merchandiser test in [place] when hearing aides are obtained.
[2023-04-25 15:31] VITALS: BMI 23.1
--- NOTE | 2023-04-27 14:20 | CASEMGMT ---
Social Work Telephone call from patient daughter, Jaqueline. Jaqueline reports to have decided to cancel home health for patient and would like patient to go to [facility] for therapy. This director of social media marketing communicating plan to speak with Dr. Bingham about getting outpatient order. Dr. Bingham states to be agreeable to sign order for outpatient speech therapy, only. Dr. Bingham signed order. Telephone call back to Jaqueline Parsons request for outpatient therapy to be set up through [facility], this director of social media marketing faxed order with instructions for [facility] to reach out to Jaqueline to set up appointment. Jaqueline aware that [facility] will be reaching out to set up appointment for patient. Jaqueline states to have spoken with Home Health and to have canceled services. Kelvin Chavez MSW, BELKIS-[facility]
== END 2023-04-25 15:00 | disposition home health service (06) | DRG 57 ==
PROVIDERS: Admitting Provider Internal Medicine; PCP Internal Medicine; Visit Provider Internal Medicine
DX: I69.320 Aphasia following cerebral infarction (principal); F32.A Depression, unspecified; F41.9 Anxiety disorder, unspecified; L80 Vitiligo; M79.7 Fibromyalgia; I10 Essential (primary) hypertension; K21.9 Gastro-esophageal reflux disease without esophagitis; I87.2 Venous insufficiency (chronic) (peripheral); I69.398 Other sequelae of cerebral infarction; G45.4 Transient global amnesia; H90.0 Conductive hearing loss, bilateral; Z79.899 Other long term (current) drug therapy; Z79.82 Long term (current) use of aspirin
CPT/HCPCS: 36415; 80048; 80053; 83735; 84100; 85025; 85027; 92507; 94668; 96125; 97110; 97112; 97116; 97129; 97130; 97162; 97166; 97530; 97535; 97802

== ENCOUNTER → 2025-06-30 | Outpatient (CLI) | payer MEDICARE, OTHER, SELFPAY ==
[2025-06-30 10:46] LABS: AST(SGOT) 23 U/L (<=31); Alanine Aminotransfer ALT/SGPT 25 U/L (<=34); Albumin, Serum 4.0 g/dL (3.4-4.8); Alkaline Phosphatase 101 U/L (35-104); Anion Gap 10 (5-15); BUN 29 mg/dL (4-19); BUN/Creat Ratio 27.9 RATIO (10-20); Calcium,Total 9.4 mg/dL (7.6-11.0); Carbon Dioxide 23.5 mmol/L (21.0-32.0); Chloride 108 mmol/L (98-108); Cholesterol 132 mg/dL (<=200); Globulin 3.0 g/dL (2.2-4.2); Glucose 104 mg/dL (70-99); Low Density Lipoprotein Calc. 60 mg/dL; Potassium 4.1 mmol/L (3.3-5.1); Triglycerides 76 mg/dL; Very Low Density Lipoprotein 15 mg/dL (5-40); cholesterol:hdl ratio screen 2.31
== END | disposition home or self-care (01) ==
PROVIDERS: PCP Internal Medicine; Referring Provider Internal Medicine Cardiovascular Disease; Visit Provider Internal Medicine Cardiovascular Disease
DX: I10 Essential (primary) hypertension (principal); E78.5 Hyperlipidemia, unspecified
CPT/HCPCS: 36415; 80053; 80061; 84443

== ENCOUNTER → 2025-07-21 | Outpatient (CLI) | payer MEDICARE, OTHER, SELFPAY ==
--- NOTE | 2025-07-21 10:35 | CDU_ITS ---
Reason For Study Reason For Study: HTN Rt. Velocities/BP Lt. Velocities/BP Prox CCA 90.3/11.9 cm/sec. Prox CCA 79.8/14.9 cm/sec. Mid CCA 87.5/13.8 cm/sec. Mid CCA 93.0/18.2 cm/sec. Dist CCA 79.0/14.7 cm/sec. Dist CCA 73.2/13.8 cm/sec. Prox ICA 57.2/14.7 cm/sec. Prox ICA 93.0/11.7 cm/sec. Mid ICA 59.1/17.6 cm/sec. Mid ICA 56.9/10.8 cm/sec. Dist ICA 52.9/13.2 cm/sec. Dist ICA 64.3/10.1 cm/sec. Rt. ICA/CCA = 0.7. Lt. ICA/CCA = 1.0. Prox ECA 117.7/7.9 cm/sec. Prox ECA 97.4/7.3 cm/sec. Rt. Vert. 59.1/9.1 cm/sec. Lt. Vert. 56.7/11.7 cm/sec. Right Extracranial There is intimal thickening but no significant atherosclerotic plaque noted in the right common carotid artery. There is heterogeneous, irregular atherosclerotic plaque noted in the right internal carotid artery. There is heterogeneous, irregular atherosclerotic plaque noted in the right external carotid artery. Antegrade flow is noted in the right vertebral artery. Left Extracranial There is homogeneous, smooth atherosclerotic plaque noted in the left common carotid artery. There is heterogeneous, irregular atherosclerotic plaque noted in the left internal carotid artery. There is heterogeneous, irregular atherosclerotic plaque noted in the left external carotid artery. Antegrade flow is noted in the left vertebral artery. Procedure Carotid Duplex 12666. This is a Carotid Duplex examination using B-mode, color flow and specral Doppler. The exam was diagnostic. Exam performed in department. VL/Carotid Duplex Ultrasound Interpretation Summary Mild (<50%) stenosis right extracranial internal carotid. Mild (<50%) stenosis left extracranial internal carotid. Patent and antegrade vertebrals bilaterally. Ordering Physician: Rosemarie Bailey Referring Physician: America Tyson Performed By: Han Ricardo RVT
== END | disposition home or self-care (01) ==
LOC: CVS 10:34
PROVIDERS: PCP Internal Medicine; Referring Provider Internal Medicine Cardiovascular Disease; Visit Provider Internal Medicine Cardiovascular Disease
DX: I65.21 Occlusion and stenosis of right carotid artery (principal); I10 Essential (primary) hypertension; E78.5 Hyperlipidemia, unspecified; Z86.73 Personal history of transient ischemic attack (TIA), and cerebral infarction without residual deficits
CPT/HCPCS: 93880